=== PATIENT | female | born 1970 | race African-American/Black ===

== ENCOUNTER 2016-10-08 23:59 | Inpatient (IN) | payer MEDICARE, OTHER ==
--- NOTE | ~2016-10-08 | DS ---
Unit #: [id number] #: [id number] Patient: JIMENEZ KHALIL [id number] [address] [address] [id number] I MR#: [id number] NAME: JIMENEZ KHALIL ROOM: 576 Age: 46 Sex: F Admission Date: 10/09/2016 : 1970 Discharge Date: 10/11/2016 Attending Physician: Elian Santana M.D. Primary Care Physician: No Primary Care Physician DISCHARGE SUMMARY DISCHARGE DIAGNOSES 1. Malignant hypertension, better. 2. Atypical chest pain, status post cardiology evaluation: Stable for discharge. 3. Acute deep venous thrombosis, status post evaluation by hematology: Was treated with the Lovenox. After discussion with hematology, per hematology recommendations, patient is being discharged on Xarelto. 4. Acute kidney injury of chronic kidney disease, status post evaluation per entry level electrical engineer: Stable to be discharged. 5. Chronic abdominal pain and gastroparesis, tolerating p.o. diet. 6. Continuous tobacco use: Counseled on the importance of quitting on multiple occasions on this hospitalization. 7. Chronic obstructive pulmonary disease, stable at the baseline. 8. Insulin dependent diabetes, stable. 9. Anemia of chronic disease, stable: Discharge date H and H 9.3 and 27.7. CONSULTS DURING THIS HOSPITAL STAY 1. Dr. Yunier Esquivel - Hematology. 2. Dr. Childs - Cardiology. 3. Dr. Moreno - Endocrinology. 4. Dr. Jagjit Ledesma - Nephrology. LABS, DIAGNOSTICS AND PROCEDURES DURING THIS HOSPITAL STAY Carotid ultrasound showed DVT within the lower right internal jugular vein. Lower extremity Doppler negative. Upper extremity Doppler positive for occlusive or nearly occlusive DVT in the right lower internal jugular vein and subclavian vein. Positive for occlusive superficial venous thrombus in the left below elbow cephalic vein, otherwise negative. HISTORY OF PRESENT HOSPITAL STAY Please refer to H and P done by me for initial presentation on this female. ACTIVE PROBLEMS AND DIAGNOSES Malignant hypertension: The patient was restarted on her home medications. Her blood pressure responded well. Currently stable from BP standpoint to be discharged. Outpatient followup with primary care physician. See discharge Med Rec below. Unit #: [id number] #: [id number] Patient: JIMENEZ KHALIL Acute deep venous thrombosis, status post evaluation per hematology: Initially, was treated with a treatment dose of Lovenox. Discussed the case with Dr. Esquivel and patient will be discharging home with Xarelto 15 mg p.o. b.i.d. for three weeks and then 20 mg daily afterwards, total of three months per Dr. Esquivel's recommendations. Dr. Esquivel also provided the patient with his business card and patient was advised to follow up with Dr. Esquivel as an outpatient basis. Acute kidney injury on chronic kidney disease: Again, status post evaluation per Nephrology. Stable from nephrology standpoint to be discharged. Atypical chest pain, status post evaluation per cardiology: Stable to be discharged. Chronic abdominal pain and gastroparesis, stable: Tolerating p.o. well. Insulin dependent diabetes, status post evaluation per Dr. Moreno: Stable, on insulin regimen as above. Anemia of chronic disease, stable as above. Chronic obstructive pulmonary disease, stable at the baseline. Tobacco use: The patient was noticed leaving the floor frequently to go outside and smoke. Was counseled on the importance of quitting tobacco on multiple occasions. DISCHARGE MEDICATIONS 1. Neurontin 800 mg t.i.d. 2. Home dose of Phenergan 25 mg p.o. daily p.r.n. 3. Norvasc 10 mg daily. 4. Toprol XL 100 mg b.i.d. 5. Clonidine 0.3 mg patch daily. 6. Hydralazine 50 mg p.o. q.6 hours. 7. Levemir 40 units subcu b.i.d. 8. NovoLog 15 units subcu t.i.d. with meals. 9. Oxycodone 15 mg t.i.d. 10. Plavix 75 mg daily. 11. Xarelto 15 mg p.o. b.i.d. for three weeks and then 20 mg afterwards daily. The patient is to follow up with the primary care physician in two to three days. Outpatient followup with Dr. Esquivel in one to two weeks. Outpatient followup with nephrology. Dictated by..Katrin Santana M.D. ANGÉLICA/sonja TD: 10/12/2016 10:28 JOB #: [id number] Unit #: [id number] #: [id number] Patient: JIMENEZ KHALIL DISCHARGE SUMMARY Page 1 of 1 X Elian Santana MD X DISCHARGE SUMMARY
--- NOTE | ~2016-10-08 | CO ---
Unit #: [id number] #: [id number] Patient: JIMENEZ KHALIL [id number] [address] [address] [id number] I MR#: [id number] NAME: JIMENEZ KHALIL ROOM: 576 Age: 46 Sex: F Admission Date: 10/09/2016 : 1970 Attending Physician: Elian Santana M.D. Primary Care Physician: No Primary Care Physician CONSULTATION REPORT CHIEF COMPLAINT DVT in right internal jugular vein and right subclavian vein, superficial thrombosis and left cephalic vein below elbow, hypertension, diabetes, renal failure, gastroparesis. HISTORY OF PRESENT ILLNESS This is a 46-year-old female who has severe gastroparesis. She came with nausea, vomiting, abdominal pain. The patient has had multiple imaging studies. CT of the chest, abdomen and pelvis is normal, no mass. Venous Doppler ultrasound of the neck and the right upper extremity shows DVT in right internal jugular vein. DVT in right subclavian vein. On the left side, there is superficial vein thrombosis and cephalic vein below the elbow. Last year, the patient was admitted and had right IJ central line. There is no recent central line placement on the right side. No one in the family has thrombosis or bleeding. A long time ago, the patient had left upper extremity thrombosis after the IV access. She never took any anticoagulation. At present, she is taking Lovenox. As mentioned above, the patient had a CT of the chest, abdomen and pelvis. There is no malignancy. There is no weight loss, no night sweats. REVIEW OF SYSTEMS CONSTITUTIONAL: No fever, no chills, no sweats, no weight loss. EYES: No visual symptoms. EARS, NOSE AND THROAT: There is no runny nose or sore throat or difficulty hearing. CARDIOVASCULAR: No chest pain. No shortness of breath. No palpitations. No orthopnea. No PND. RESPIRATORY: No cough. No wheezing. No hemoptysis. GASTROINTESTINAL: No nausea, vomiting, diarrhea, constipation, hematochezia or melena. GENITOURINARY: No urinary frequency, hesitancy or urgency. No blood in the urine. MUSCULOSKELETAL: No muscle or joint pain. NEUROLOGIC: No headache. No numbness or tingling. No weakness. No seizure. PSYCHIATRIC: No anxiety, depression or mood disturbance. ENDOCRINE: No excessive urination or thirst. DERMATOLOGIC: No rash or change in the skin. ALLERGIC/IMMUNOLOGIC: No symptoms. Unit #: [id number] #: [id number] Patient: JIMENEZ KHALIL HEMATOLOGIC/LYMPHATIC: Denies any symptoms. PAST MEDICAL HISTORY 1. Uncontrolled hypertension. 2. Gastroparesis. 3. Diabetes. 4. Hypertension. 5. CKD. 6. [place]. 7. Now right IJ and right subclavian DVT. ALLERGIES Morphine, Reglan and Zyvox. SOCIAL HISTORY The patient is smoking one pack per day for 20 years. Still smoking. Denies alcohol abuse. Works as a [employer]. SURGICAL HISTORY 1. Tubal ligation. 2. Tonsillectomy. 3. Cholecystectomy. FAMILY HISTORY One of the aunt had some sort of cancer, she is not sure. Again, no one in the family had thrombosis or bleeding. MEDICATIONS Her current medications include: 1. Insulin. 2. Lovenox. 3. Oxycodone. 4. Neurontin. 5. Phenergan. 6. Pepcid. 7. Hydralazine. 8. Plavix. 9. Norvasc. PHYSICAL EXAMINATION GENERAL: Patient is comfortable. ECOG is 0. The patient is pleasant. VITAL SIGNS: Afebrile. O2 sat on 2 L 93%, blood pressure 154/83, pulse 86. HEENT: Moist mucosa. Pupils equally reactive to light. Extraocular muscles intact. Sclerae anicteric. No obvious bleeding from nasal mucosa or oral mucosa. Scalp normal. Hearing normal. NECK: No JVD. No lymphadenopathy. LYMPHATIC/HEMATOLOGIC: There is no palpable adenopathy in the neck, axilla or inguinal area. CARDIOVASCULAR: S1, S2. Regular rate and rhythm. No S3 or S4. RESPIRATORY: Chest symmetrical, normal. Clear to auscultation bilaterally. No wheezes, no rales, no rhonchi. No dullness to percussion. ABDOMEN/GASTROINTESTINAL: Abdomen is soft, nontender, nondistended. No hepatosplenomegaly. EXTREMITIES: There is no clubbing, no cyanosis, no edema. No varicose veins. NEUROLOGICAL: Patient is alert, awake and oriented x3. Cranial nerves II-XII are intact. Sensory grossly intact. Motor is 4/5 in all four Unit #: [id number] #: [id number] Patient: JIMENEZ KHALIL extremities. Gait is normal. Station is normal. Language is normal. Memory is normal. DTRs +2 in all four extremities. MUSCULOSKELETAL: No joint swelling. No bony tenderness. No muscle tenderness. SKIN: No petechiae, no rash, no ecchymosis. PSYCHIATRIC: No anxiety. No delusions or hallucinations. There is no agitation. Eye contact is normal. Affect is appropriate. There is no flight of ideas. DIAGNOSTIC STUDIES IMAGING: CT of the chest, abdomen, pelvis - no mass. Ultrasound of upper extremity as mentioned above. LABORATORY: WBC 9.7, hemoglobin 9.3, platelets 434, MCV 83. Creatinine is 2.1. LFTs are normal. Iron studies and B12 are normal. ASSESSMENT AND PLAN The patient is a 46-year-old female with the following active issues: 1. Thrombosis: The patient had right IJ and right subclavian DVT. There is a small superficial thrombosis in the left upper extremity. The DVT may be because of the line she had placed last year. At present, she is on Lovenox. She can go home on either Eliquis or Xarelto. This depends on the primary care physician. I will follow the patient as an outpatient. I will do the hypocoagulable workup. I will repeat ultrasound of the right neck and right upper extremity in the future. 2. Anemia: Iron studies normal. This is most likely due to (1) stage 4 chronic kidney disease. As an outpatient, I may consider giving her Procrit. Her iron study is normal. 3. Other conditions: Patient has hypertension, diabetes, chronic kidney disease, history of myocardial infarction, gastroparesis. At present, all are stable. Dictated by... Damaso Rehman TD: 10/12/2016 08:44 JOB #: [id number] CONSULTATION REPORT Page 1 of 1 X Bhavin Esquivel MD CONSULTATION REPORT
--- NOTE | ~2016-10-08 | CO ---
Unit #: [id number] #: [id number] Patient: JIMENEZ KHALIL [id number] [address] [place], [place] [address] [id number] I MR#: [id number] NAME: JIMENEZ KHALIL ROOM: 576 Age: 46 Sex: F Admission Date: 10/09/2016 : 1970 Attending Physician: Elian Santana M.D. Consultation Date: 10/09/2016 CONSULTATION REPORT HISTORY OF PRESENT ILLNESS This is a 46-year-old black female, who has multiple admissions known to me from last admission been admitted with the uncontrolled malignant hypertension, abdominal pain, nausea, possible gastroparesis exacerbation. On arrival, systolic blood pressure above 200 and acute renal failure with creatinine of 2.1. The patient does have a history of type 2 diabetes mellitus. She is insulin dependent. On her admission, her blood glucose was 341. I have been asked to see the patient for further adjustments of insulin. REVIEW OF SYSTEMS A 12-point review of system was completed and remarkable for nausea, some epigastric pain. No chest pain. No shortness of air. She does have some vomiting. No diarrhea. No fever or chills. No urgency, frequency, or dysuria. Rest of the 12-point review of systems unremarkable. PAST MEDICAL HISTORY Diabetes mellitus, type 2, insulin dependent; gastroparesis; hypertension; chronic pain; peripheral neuropathy; history of MRSA; history of COPD. PAST SURGICAL HISTORY Cholecystectomy, tonsillectomy, tubal ligation. FAMILY HISTORY Unremarkable. HOME MEDICATIONS List was reviewed. The patient was taking Levemir 70 units b.i.d. I believe NovoLog is about 52 units with meals. Other medications include gabapentin, Zestril, hydralazine, clonidine, Plavix, Norvasc, Toprol-XL. ALLERGIES To morphine, Reglan, Zyvox. PHYSICAL EXAMINATION GENERAL: Awake, alert. She looks uncomfortable because of pain, but in no acute respiratory distress. VITAL SIGNS: Afebrile, hemodynamically stable. HEENT: EOMI. Pupils equally reactive to light. NECK: Supple. No thyromegaly. CHEST: Good air entry. CVS: Regular rhythm. No murmurs. ABDOMEN: Soft. She has generalized tenderness with positive bowel sounds. Unit #: [id number] #: [id number] Patient: JIMENEZ KHALIL EXTREMITIES: No edema. No ulcers. DIAGNOSTIC STUDIES LABORATORY RESULTS: Labs were reviewed. Glucose 341, BUN is 33, creatinine 2.1. Most recent A1c is not available. ASSESSMENT 1. Type 2 diabetes mellitus complicated with gastroparesis, uncontrolled. 2. Exacerbation of gastroparesis. 3. Obesity. 4. Poor diet compliance. PLAN We will change the patient's Levemir to 40 units b.i.d. Accu-Cheks every 4 hours. Continue IV hydration. Cover with supplemental insulin as needed. The patient is on clear liquids. We will advance the diet as tolerated. Continue all other home medications. Thanks again for consultation. Dictated by... Damaso Levin/yvette TD: 10/11/2016 06:02 JOB #: [id number] CONSULTATION REPORT Page 1 of 1 X Sherry Moreno MD X CONSULTATION REPORT
--- NOTE | ~2016-10-08 | CO ---
Unit #: [id number] #: [id number] Patient: JIMENEZ KHALIL [id number] [address] [place], [place] [address] [id number] I MR#: [id number] NAME: JIMENEZ KHALIL ROOM: 576 Age: 46 Sex: F Admission Date: 10/09/2016 : 1970 Attending Physician: Elian Santana M.D. Consultation Date: 10/09/2016 CONSULTATION REPORT DICTATED FOR [facility]. REASON FOR CONSULTATION Hypertension. HISTORY OF PRESENT ILLNESS This is a 46-year-old female, who has been seen in the past by Dr. Lamine Salas. She has a past medical history of hypertension, diabetes mellitus, diabetic gastroparesis, chronic pain, peripheral neuropathy, anemia of chronic disease, COPD, and chronic kidney disease. The patient presented to the emergency room with complaints of abdominal pain, it started approximately 1 week ago. However, she stated the pain worsened yesterday requiring her to seek treatment. The patient described the pain is diffuse of generalized abdominal discomfort and pain associated with nausea and bouts of bilious emesis x4 episodes. She denied any complaints of fever or chills. She states she has been having some watery stools as well, but denied any blood in the stools. Reports she was just feeling weak and not able to keep any liquids down. The patient also mentioned some right-sided chest pain described as throbbing and sharp. She states this has been occurring off and on for several weeks. The patient does report she has been compliant with her medications. Denies any radiation of the pain into the jaw, shoulder, or down the arm. There was no associated diaphoresis or shortness of breath. The patient does report that her legs have been swelling slightly over the last few days. Usually, the swelling subsides when she lays down. She reports she has been compliant with all of her medications. On arrival to the emergency room, the patient did have cardiac EKG performed, which showed normal sinus rhythm, rate of 94 beats per minute, right atrial enlargement, QTc interval of 497 msec, no acute ischemic change was noted. Point of care troponin thus far has been negative. She also was noted to have elevated blood pressure on admission, which was running 190s over 99 to 197/116. The patient has received in the ER some IV fluids as well as hydralazine IV. At present, she is resting in the bed. She states she does not feel well, primarily complaining of generalized fatigue and abdominal discomfort. Currently, blood pressure is in the 190 range. Her rhythm remained stable. She is sinus rhythm. The patient underwent cardiac catheterization in 12/2016 secondary to an abnormal stress test. Cardiac catheterization showed normal coronary arteries with normal LVEF. Unit #: [id number] #: [id number] Patient: JIMENEZ KHALIL PAST MEDICAL HISTORY 1. Cardiac catheterization in 12/[address] Szymanski showed normal coronary arteries and normal LVEF. 2. Hypertension. 3. Diabetes mellitus. 4. Diabetic gastroparesis. 5. History of diastolic CHF, LVEF 55 on last echo. 6. Depression. 7. Continued tobacco abuse. 8. Obesity. ALLERGIES Morphine, Reglan, Zyvox, and nitrates. SOCIAL HISTORY The patient lives with her daughter. She continues to smoke approximately one pack per day times the last 20 years. 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 Denies alcohol or illicit drug use. FAMILY HISTORY Positive for diabetes in her mother. Hypertension in her mother as well as coronary artery disease. Father, she is unsure. REVIEW OF SYSTEMS Positive for lower extremity swelling, abdominal pain, nausea, and vomiting. Otherwise, as stated above. PHYSICAL EXAMINATION GENERAL: This is a pleasant 46-year-old female, in no acute distress. HEENT: Head is atraumatic and normocephalic. Pupils are equal and round. NECK: Trachea is midline. No lymphadenopathy. No thyromegaly. Carotid bruit auscultated on the right carotid artery. CARDIOVASCULAR: S1, S2. No murmurs, gallops, or rubs. LUNGS: Clear to auscultation. No adventitious breath sounds. No rales, no rhonchi, no wheezes. ABDOMEN: Obese, pannus, soft, slightly tender to palpation, enlarged liver. EXTREMITIES: Pulses are palpable. Trace edema. No clubbing or cyanosis is noted. NEUROLOGIC: She is awake, alert, and oriented. She follows all commands. Moves extremities with ease. HOME MEDICATIONS Toprol-XL 100 mg p.o. b.i.d., Norvasc 10 mg p.o. daily, Plavix 75 mg p.o. daily, Levemir 60 units subcu b.i.d., hydrochlorothiazide/spironolactone one tab p.o. b.i.d., clonidine one each topical daily 0.3 mg, hydralazine 50 mg p.o. q.6 hours, Zestril 20 mg p.o. b.i.d. DIAGNOSTIC STUDIES LABORATORY RESULTS: Glucose 341, BUN 33, creatinine 2.1, sodium 135, potassium 3.9, chloride 98, CO2 of 25, albumin is 2.6, alkaline phosphatase 142. Lipases is 21. BHOB is 0.66. Point of care troponin was 0.08. Hemoglobin 9.7, hematocrit 29.0, MCV 82.9, WBCs 10.7, platelet count 441. CARDIOVASCULAR STUDIES: EKG shows normal sinus rhythm, rate 94 beats per Unit #: [id number] #: [id number] Patient: JIMENEZ KHALIL minute, right atrial enlargement, QTc interval 497 msec, no acute ischemic changes noted. IMPRESSION 1. Chest pain, atypical for ischemic heart disease. 2. Hypertension. 3. Insulin-dependent diabetes mellitus with poorly controlled. 4. Hepatomegaly. 5. Gastroparesis with nausea and vomiting. 6. Chronic obstructive pulmonary disease with continued nicotine abuse. 7. Obesity with a BMI of 37. 8. Chronic kidney disease. PLAN At this time, we will continue IV fluids for rehydration. The patient has undergone recent cardiac catheterization in 12/2014 after an abnormal stress Cardiolite. At that time, her coronaries were noted to be normal with a normal LVEF. At this time, her blood pressure will be monitored. Some of her medications have been discontinued secondary to her elevated creatinine, we will keep an eye on that. She was advised on the importance of diet, exercise, and weight loss as well as tobacco cessation. Her EKG has been reviewed and was normal. We will trend cardiac enzymes. However, her chest pains appear atypical for ischemic heart disease. Not much to add at this time with normal coronaries and normal LV function. The patient was also educated on the importance of low-sodium diet and the importance of compliance with her hypertensive medications. Further recommendations to follow pending cardiology's assessment. Thank you for asking us to see this pleasant patient. We appreciate the consult. Dictated by... Emani Sinclair/yvette TD: 10/10/2016 00:39 JOB #: [id number] CONSULTATION REPORT Page 1 of 1 X Odalis Pretty APRN CONSULTATION REPORT
--- NOTE | ~2016-10-08 | CT57 ---
[facility] A Service of [facility] RADIOLOGY TEXT RESULTS PATIENT: JIMENEZ KHALIL LOCATION: [facility] : 74 UNIT #: [id number] AGE: [address]: Elian Santana MD SEX: F ORDER DR: [id number] [place] [id number] [facility]. [place], [place] [address] [id number] MR#: [id number] Acc #: [id number] NAME: JIMENEZ KHALIL : 1970 SEX: F STUDY DATE/TIME: 10/11/2016 12:47 UNIT: [facility] ROOM: [facility] STUDY DESCRIPTION: CT Chest Wo Cont Attending Physician: Elian Santana M.D. Ordering Physician: Bhavin Esquivel M.D. Primary Care Physician: Primary Care Physician No MEDICAL IMAGING REPORT This report is preliminary unless electronic signature is present EXAM CT chest without contrast 10/11/2016 HISTORY 46-year-old female with shortness of air for 2 days. Order requests evaluation for malignancy. COMPARISON Chest x-ray 09/14/2016 TECHNIQUE Helical scan performed through the chest without IV contrast. Coronal and sagittal reformatted images. This CT exam was performed with one or more of the following radiation dose reduction techniques: automatic exposure control, adjustment of mA and/or kV according to patient size, and iterative reconstruction. FINDINGS Thoracic aorta normal in course and caliber. Heart size normal. No pericardial effusion. No evidence of significant mediastinal lymphadenopathy. No pleural effusion. No pneumothorax. No parenchymal infiltrates or masses. Incidental scanning through the upper abdomen is unremarkable. Cholecystectomy. No acute bony abnormality. IMPRESSION 1. No acute chest findings. No evidence of pulmonary mass or infiltrate. 2. No significant mediastinal lymphadenopathy allowing for lack of IV contrast. 3. Cholecystectomy. [facility] A Service [facility] RADIOLOGY TEXT RESULTS PATIENT: JIMENEZ KHALIL LOCATION: [facility] : 74 UNIT #: [id number] AGE: [address]: Elian Santana MD SEX: F ORDER DR: Results discussed with Dr. Esquivel at the time of dictation. Dictated by... Abdoul Murray M.D. THIS IS AN ELECTRONICALLY VERIFIED REPORT Abdoul Murray M.D. at 10/12/2016 10:55 AM KALLI/naomi TD: 10/12/2016 09:09 JOB #: [id number] MEDICAL IMAGING REPORT Page 1 of 1 COPY
--- NOTE | ~2016-10-08 | US84 ---
[id number] [facility]. [facility] [address]. [place], [place] [address] [id number] MR#: [id number] Acc #: [id number] NAME: JIMENEZ KHALIL : 1970 SEX: F STUDY DATE/TIME: 10/10/2016 15:13 UNIT: [facility] ROOM: 576 STUDY DESCRIPTION: US LE Veins Complete Roderick Stdy Attending Physician: Elian Santana M.D. Ordering Physician: Elian Santana M.D. Primary Care Physician: No Primary Care Physician MEDICAL IMAGING REPORT This report is preliminary unless electronic signature is present EXAM Bilateral lower extremity venous Doppler, 10/10/2016 HISTORY Right arm DVT with bilateral leg pain, on Plavix. Bilateral leg swelling and short of air with chest tightness symptoms for 1 week. TECHNIQUE Venous ultrasound examination of both lower extremities was performed using grayscale, spectral Doppler and color flow Doppler imaging. FINDINGS The examination is negative. There is no evidence of deep venous thrombus from the groin to the lower calf bilaterally. Visualized greater saphenous veins are also patent. IMPRESSION Negative examination. No evidence of lower extremity deep venous thrombosis. Dictated by... Andrew Quick M.D. THIS IS AN ELECTRONICALLY VERIFIED REPORT Andrew Quick M.D. at 10/12/2016 11:21 AM PAPO/aubree TD: 10/10/2016 22:28 JOB #: [id number] MEDICAL IMAGING REPORT Page 1 of 1 COPY
--- NOTE | ~2016-10-08 | US38 ---
[facility] A Service of [facility] RADIOLOGY TEXT RESULTS PATIENT: JIMENEZ KHALIL LOCATION: [facility] [address]-02 : [birth year] UNIT #: [id number] AGE: [address]: Elian Santana MD SEX: F ORDER DR: [id number] [facility] [address] [place], [place] [address] [id number] MR#: [id number] Acc #: [id number] NAME: JIMENEZ KHALIL : 1970 SEX: F STUDY DATE/TIME: 10/09/2016 10:30 UNIT: [facility] ROOM: 21027 STUDY DESCRIPTION: US Carotid W/Doppler [facility] Attending Physician: Elian Santana M.D. Ordering Physician: Odalis Pretty A.P.R.N. Primary Care Physician: No Primary Care Physician MEDICAL IMAGING REPORT This report is preliminary unless electronic signature is present EXAM Right unilateral carotid Doppler ultrasound examination, 10/09/2016. HISTORY 46-year-old female referred for right carotid bruit on physical examination. A right unilateral examination is requested. TECHNIQUE Right unilateral carotid Doppler ultrasound examination was performed using frye-scale, spectral Doppler, and color-flow Doppler ultrasound imaging. Carotid flow was assessed using criteria based on NASCET methodology. FINDINGS The examination is negative. No significant atheromatous plaque is seen within the carotid vessels. Doppler evaluation shows normal flow velocities and normal Doppler waveforms within the right carotid and vertebral arteries. Peak systolic ICA flow velocity measures up to 0.60 m/sec on the right. Note is made of segmental DVT within the right lower internal jugular vein. Consider followup complete right upper extremity venous Doppler ultrasound examination for further assessment. IMPRESSION 1. Normal right unilateral carotid Doppler ultrasound examination. Left carotid exam was not ordered. 2. DVT is present within the lower right internal jugular vein. Consider followup complete right upper extremity venous Doppler assessment. STAT * RESULT [facility] A Service of [facility] RADIOLOGY TEXT RESULTS PATIENT: JIMENEZ KHALIL LOCATION: [facility] [id number] : [birth year] UNIT #: [id number] AGE: [address]: Elian Santana MD SEX: F ORDER DR: Dictated by... Jefe Salcido M.D. THIS IS AN ELECTRONICALLY VERIFIED REPORT Jefe Salcido M.D. at 10/09/2016 1:32 PM RGW/olena TD: 10/09/2016 11:58 JOB #: [id number] MEDICAL IMAGING REPORT Page 1 of 1 COPY
--- NOTE | ~2016-10-08 | US139 ---
[facility] A Service of [facility] RADIOLOGY TEXT RESULTS PATIENT: JIMENEZ KHALIL LOCATION: [facility] 576-01 : [birth year] UNIT #: [id number] AGE: [address]: Elian Santana MD SEX: F ORDER DR: [id number] [facility] [address]. [place], [place] [address] [id number] I MR#: [id number] Acc #: [id number] NAME: JIMENEZ KHALIL : 1970 SEX: F STUDY DATE/TIME: 10/10/2016 15:31 UNIT: [facility] ROOM: [facility] STUDY DESCRIPTION: US UE Veins Complete Roderick Stdy Attending Physician: Elian Santana M.D. Ordering Physician: Elian Santana M.D. Primary Care Physician: No Primary Care Physician MEDICAL IMAGING REPORT This report is preliminary unless electronic signature is present EXAM Bilateral upper extremity venous Doppler 10/10/2016 HISTORY Short of air for 1 month. PROCEDURE Cabral-scale imaging, color-Doppler flow imaging and Doppler waveform analysis. FINDINGS On the right there is occlusive or nearly occlusive thrombus in the lower internal jugular vein and in the right subclavian vein. The axillary and brachial veins are normal and superficial cephalic and basilic veins are normal as well. On the left, the internal jugular, subclavian, axillary, and brachial veins are normal. The cephalic vein is normal above the elbow but there is below elbow occlusive cephalic vein superficial venous thrombus on the left. The left basilic vein is normal. IMPRESSION 1. Positive for occlusive or nearly occlusive DVT in the right lower internal jugular vein and subclavian vein. 2. Positive for occlusive superficial venous thrombus in the left below elbow cephalic vein. 3. Otherwise negative. Dictated by... Andrew Quick M.D. THIS IS AN ELECTRONICALLY VERIFIED REPORT Andrew Quick M.D. at 10/12/2016 11:21 AM [facility] Service of [facility] RADIOLOGY TEXT RESULTS PATIENT: JIMENEZ KHALIL LOCATION: [facility] 576-01 : [birth year] UNIT #: [id number] AGE: [address]: Elian Santana MD SEX: F ORDER DR: PAPO/davie TD: 10/10/2016 23:39 JOB #: [id number] MEDICAL IMAGING REPORT Page 1 of 1 COPY
--- NOTE | ~2016-10-08 | EKG ---
PATIENT: JIMENEZ KHALIL UNIT #: [id number] Ventricular Rate: 94 BPM Atrial Rate: 94 BPM P-R Interval: 154 ms QRS Duration: 74 ms Q-T Interval: 398 ms QTC Calculation(Bezet): 497 ms P King: 75 degrees Calculated R King: 18 degrees Calculated T King: 66 degrees Diagnosis Line: Normal sinus rhythm Diagnosis Line: Right atrial enlargement Diagnosis Line: Prolonged QT Diagnosis Line: Abnormal ECG Diagnosis Line: No previous ECGs available Diagnosis Line: Confirmed by ANGY MCLAUGHLIN MD ([id number]) on 10/09/2016 Diagnosis Line: 8:10:10 PM INTERPRETING MD: LISSETTE JACKMAN
--- NOTE | ~2016-10-08 | CO ---
Unit #: [id number] #: [id number] Patient: JIMENEZ KHLAIL [id number] [address] [place], [place] [address] [id number] I MR#: [id number] NAME: JIMENEZ KHALIL ROOM: 576 Age: 46 Sex: F Admission Date: 10/09/2016 : 1970 Attending Physician: Elian Santana M.D. Consultation Date: 10/10/2016 CONSULTATION REPORT REASON FOR CONSULTATION Elevated creatinine level, uncontrolled high blood pressure. HISTORY OF PRESENT ILLNESS The patient is a 46-year-old female, came in with complaints of vomiting for 2 to 3 days, no diarrhea, noted to have elevated blood pressure, no shortness of breath, no mental status changes, no noted hematuria. The creatinine noted to be 2.1 with blood pressure on admission in 200s. No reported chest pain. No fever, but the patient does report chills. PAST MEDICAL HISTORY Significant for insulin-dependent diabetes, gastroparesis, hypertension, peripheral neuropathy, history of COPD, anemia of CKD, anemia of chronic disease. PAST SURGICAL HISTORY Significant for cardiac catheterization in 2014 which was unremarkable reportedly, status post cholecystectomy, tonsillectomy, tubal ligation. FAMILY HISTORY Unremarkable for end-stage renal disease. HOME MEDICATIONS Include Toprol 100 mg b.i.d., Norvasc 10 mg daily, Plavix 75 mg daily, Levemir 60 units b.i.d., Aldactone and hydrochlorothiazide b.i.d., clonidine 0.3 daily, hydralazine 50 mg q.6, Zestril 20 mg b.i.d., gabapentin 800 mg t.i.d., Phenergan 25 mg daily, NovoLog 52 units t.i.d. ALLERGIES Morphine, Reglan, and Zyvox. PHYSICAL EXAMINATION GENERAL: The patient is awake, alert, and oriented. VITAL SIGNS: Currently blood pressure is 154/72, heart rate is 85, temperature is 97.7. HEENT: Head is atraumatic. Extraocular movements are intact. NECK: Supple. There is no elevation of the JVD. CHEST: Clear. Air entry is equal bilaterally. Breathing is vesicular in nature. HEART: S1, S2 audible. There is no S3, no S4. ABDOMEN: Soft. There is no organomegaly. No guarding. No rigidity. No rebound tenderness. EXTREMITIES: There is no edema. Unit #: [id number] #: [id number] Patient: JIMENEZ KHALIL COMPLIANCE NURSE: Motor system is intact. Cerebellar system is intact. DIAGNOSTIC STUDIES LABORATORY RESULTS: Significant for WBC 10.7, hemoglobin 9.7, hematocrit 29, and platelets 441. The sodium 135, potassium 3.9, chloride 98, CO2 of 25, BUN 33, creatinine 2.1, glucose 341, calcium 8.4. The creatinine level in 11/2015 was 1.1. IMPRESSION 1. Acute kidney injury likely hemodynamic related complicated by Zestril. We will gently hydrate, hold Zestril, and follow the renal function. Less likely to have acute tubular necrosis. Less likely postinfectious glomerulonephritis. We will consider checking for obstruction. 2. Gastroenteritis, Gastroenterology to follow. 3. Hypertension. Continue home medications, use IV labetalol. 4. Monitor electrolytes acid-based. Dictated by... Jagjit Ledesma M.D. RA/yvette TD: 10/11/2016 02:32 JOB #: [id number] CONSULTATION REPORT Page 1 of 1 X Jagjit Ledesma MD CONSULTATION REPORT
--- NOTE | ~2016-10-08 | HP ---
Unit #: [id number] #: [id number] Patient: JOYCE KHALIL [id number] [address] [address] [id number] I MR#: [id number] NAME: JOYCE KHALIL ROOM: 576 Age: 46 Sex: F Admission Date: 10/09/2016 : 1970 Attending Physician: Elian Santana M.D. HISTORY AND PHYSICAL ADMISSION DIAGNOSES 1. Malignant hypertension. 2. Acute renal failure. 3. Elevated troponin with some chest pain. 4. Abdominal pain with some nausea. 5. History of gastroparesis. 6. Insulin-dependent diabetes. 7. Anemia of chronic disease. 8. History of chronic pain. 9. Acute deep venous thrombosis. 10. History of chronic obstructive pulmonary disease. HISTORY OF PRESENT ILLNESS Miss Joyce Khalil is a 46-year-old female well known to our service secondary to similar presentation in the past. She was discharged from our service in August of last year when she presented with malignant hypertension and gastroparesis. This time, patient comes with the complaints of abdominal discomfort and nausea. She was complaining also of some atypical chest discomfort with some radiation towards the back and epigastric area. On initial evaluation in the ER, patient was found with malignant hypertension with systolic blood pressures in the 200s, along with acute renal failure with a creatinine of 2.1 and BUN 33. Patient also had a mildly elevated set of troponins. She is status post evaluation per Nephrology and Cardiology. CT abdomen and pelvis did not show any acute findings. Chest x-ray was unremarkable. A CT of the head also was done which was without any acute findings. Carotid ultrasound showed a right internal jugular vein DVT. Patient initially was started on subcutaneous heparin for DVT prophylaxis, but then after these findings of the DVT, she is currently on treatment dose of subcutaneous Lovenox. Currently, she denies any active chest pain, denies any headache or dizziness, and denies any fever, chills, cough, or shortness of air. She complains of being nauseated. Denies currently any abdominal pain which has resolved since presentation to the emergency room. No syncopal episode. So a 12-point review of systems on this patient basically is negative except as above. PAST MEDICAL HISTORY 1. Insulin-dependent diabetes. 2. Gastroparesis. 3. Hypertension. 4. Chronic pain. Unit #: [id number] #: [id number] Patient: JOYCE KHALIL 5. Peripheral neuropathy. 6. History of MRSA. 7. History of COPD. 8. Anemia of chronic disease. PAST SURGICAL HISTORY 1. Cardiac cath in December 2014 which was reportedly negative. 2. Cholecystectomy. 3. Tonsillectomy. 4. Tubal ligation. 5. Previous EGDs and colonoscopies. FAMILY HISTORY Unremarkable. HOME MEDICATIONS 1. Toprol-XL 100 mg b.i.d. 2. Norvasc 10 mg daily. 3. Plavix 75 mg daily. 4. Levemir 60 units subcutaneous b.i.d. 5. Spironolactone and hydrochlorothiazide 1 tablet p.o. b.i.d. 6. Clonidine 0.3 mg patch daily. 7. Hydralazine 50 mg q.6 hours. 8. Zestril 20 mg b.i.d. 9. Gabapentin 800 mg t.i.d. 10. Oxycodone 15 mg t.i.d. 11. Phenergan 25 mg p.o. daily. 12. NovoLog 52 units subcutaneous t.i.d. ALLERGIES Morphine, Reglan, and Zyvox. PHYSICAL EXAMINATION GENERAL: Patient is a 46-year-old female in no acute distress. VITAL SIGNS: Blood pressure 154/72, heart rate 85, respirations 18, and temperature 97.7. HEENT: Head is atraumatic. Pupils equal, round, and reactive to light and accommodation. Extraocular muscles intact. Oropharynx clear. NECK: Supple. No mass, no JVD, and no bruits. CHEST: Diminished at the bases but generally clear. CARDIOVASCULAR: S1 and S2. No murmurs. ABDOMEN: Obese, soft, nontender, and nondistended. Bowel sounds are diminished. LOWER EXTREMITIES: Without any cyanosis, clubbing, or edema. NEUROLOGIC: Grossly intact with no focal deficits. Alert and oriented x3. Answering questions appropriately. DIAGNOSTIC STUDIES LABORATORY: Chemistry significant for BUN and creatinine of 33 and 2.1, blood glucose 341, GFR down at 32.4, chloride 98, albumin 2.6, and alkaline phosphatase 142. Lipase 21. Total CK 144. Hematology shows a white count of 10.7, hemoglobin and hematocrit 9.7 and 29, and platelets 441,000. IMAGING: Chest x-ray, CTs of the head and abdomen, and carotid ultrasound as above. Unit #: [id number] #: [id number] Patient: JOYCE KHALIL ASSESSMENT AND PLAN 1. Malignant hypertension. Resumed on home medications. Status post Cardiology evaluation. Stable. 2. Acute renal failure, status post evaluation per Nephrology. Continue to hold diuretics, hold MIKAL, and monitor closely. Gentle hydration. 3. Reportedly elevated troponins which was reported to me by ER physicians. However, I cannot find any records in the computer. Patient also reported some atypical chest discomfort. She had a recent cardiac catheterization in 2014. Cardiology follows. Follow up on their recommendations. Follow up on the 2D echocardiogram. 4. Abdominal pain with nausea most likely secondary to history of gastroparesis. Will check amylase and lipase. Consider Dr. Guerra consult. 5. Insulin-dependent diabetes. Will ask Dr. Moreno for help. 6. History of gastroparesis as above. 7. Acute deep venous thrombosis. Started on Lovenox. Check the ultrasounds. Will have Hematology on board. 8. Anemia of chronic disease, currently stable. 9. Gastrointestinal prophylaxis. Continue with Pepcid. 1. Dictated by Damaso Goldberg/jessi TD: 10/09/2016 22:00 JOB #: [id number] HISTORY AND PHYSICAL Page 1 of 1 X Elian Santana MD X HISTORY AND PHYSICAL
[~2016-10-08 23:59] MED LIST: ACETAMINOPHEN500 M3 PO; ALDACTAZIDE PO; ALDACTONE25 MG PO; ALPRAZOLAM0.25 MG PO; APRESOLINE10 M1 PO; ARTIFICIAL TEAR15 ML OP; ASPIRIN81 M1 PO; ASPIRIN81 M2 PO; ATIVAN PO; ATORVASTATIN CA10 MG PO; BACTRIM DS TABL1 TA1 PO; BACTRIM DS TABL1 TAB PO; BENZONATATE PO; CARVEDILOL25 MG PO; CATAPRES-TTS-20.2 M1 EXT; CATAPRES-TTS-20.2 MG PO; CATAPRES-TTS-30.3 M1 TD; CATAPRES0.1 MG PO; CATAPRES0.3 MG PO; CILOXAN 0.3% O2.5 ML OP; CLEOCIN PO; CLINDAMYCIN HC300 MG PO; CLONIDINE HCL0.1 MG PO; CLONIDINE PO; CLOPIDOGREL75 MG PO; COMBIVENT INH14.7 GM IH; COREG PO; DARVOCET-N 1001 TAB PO; EFFIENT10 MG PO; ERYTHROMYCIN F PO; GLUCOPHAGE XR500 MG PO; HUMULIN 70/30 V10 ML INJ; HYDRALAZINE HCL25 MG PO; HYDRALAZINE HCL50 MG PO; HYDROCHLOROTH12.5 M1 PO; HYDROCHLOROTH12.5 MG PO; HYDROCHLOROTHIA25 MG PO; HYDROCODON-ACE1 EAC7 PO; KEFLEX PO; KEFLEX500 MG PO; LANTUS100 U/M1 SUBQ; LANTUS100 U/ML SUBQ; LEVEMIR SUBQ; LEVEMIR100 UNITS/ SUBQ; LIPITOR PO; LISINOPRIL PO; LISINOPRIL10 MG PO; LISINOPRIL20 MG PO; LOPRESSOR PO; LORTAB 10-5001 EACH PO; LORTAB 101 TAB 10/5 PO; LORTAB 7.5-5001 TAB; MAGNESIUM OXID420 MG PO; MAGOX 400400 MG PO; METOPROLOL SUCC50 MG PO; MICROZIDE12.5 M1 PO; MIRALAX17 GM PO; NEURONTIN PO; NEURONTIN100 MG PO; NEURONTIN300 MG PO; NEURONTIN600 MG PO; NICODERM C1 PATCH .3; NORVASC PO; NORVASC10 MG PO; NOVOLOG FL100 UNIT/1 SUBQ; NOVOLOG100 U/M1 SUBQ; NOVOLOG100 U/M2 SUBQ; NOVOLOG100 U/ML; NOVOLOG100 U/ML SUBQ; NOVOLOG100 UNITS/; NOVOLOG100 UNITS/ SUBQ; PEPCID PO; PHENERGAN25 M1 PO; PLAVIX PO; PRILOSEC20 MG PO; PRINIVIL20 M1 PO; PROTONIX PO; SPIRONOLAC1 TAB 25/2 PO; TYLENOL EXTRA500 M1; TYLENOL325 M1 PO; VICODIN 5/1 TAB 5/50 PO
[2016-10-09 04:19] LABS: POC - CKMB 7.8 ng/mL (0.0-7.9); POC - TROPONIN 0.08 ng/mL (<=0.05)
[2016-10-09 04:24] LABS: BASOPHIL# 0.1 X10e3 (0-0.3); BASOPHIL% 1.3 % (0-2.5); EOSINOPHIL# 0.1 X10e3 (0-0.7); EOSINOPHIL% 1.4 % (0.0-7.0); HEMOGLOBIN 9.7 gm/dL (12.0-16.0); MEAN CELL VOLUME 82.9 FL (83-96); MEAN CORPUSCULAR HEMOGLOBIN 27.7 PG (28-34); MEAN CORPUSCULAR HGB CONC 33.4 g/dL (30-36); MEAN PLATELET VOLUME 7.9 FL (6.5-11.5); MONOCYTE# 0.7 X10e3 (0-1.0); MONOCYTE% 6.5 % (3.0-12.0); NEUTROPHIL# 6.7 X10e3 (1.5-7.1); NEUTROPHIL% 62.8 % (40-75); PLATELET COUNT 441 X10e3 (140-420); WHITE BLOOD COUNT 10.7 X10e3 (4.0-10.5)
[2016-10-09 04:25] LABS: DIFF IND NO
[2016-10-09 05:05] LABS: ALBUMIN SERUM 2.6 g/dL (3.5-5.0); ALKALINE PHOSPHATASE 142 U/L (32-92); ALT (SGPT) 18 U/L (10-40); AST (SGOT) 17 U/L (10-42); BETA HYDROXYBUTYRATE 0.66 MMOL/L (0.02-0.27); BILIRUBIN, DIRECT <0.1 mg/dL (0.0-0.2); BILIRUBIN,INDIRECT 0.4 mg/dL (0.0-0.9); BILIRUBIN,TOTAL 0.5 mg/dL (0.2-2.0); BLOOD UREA NITROGEN 33 mg/dL (9-23); BUN/CREATININE RATIO 15.71; CALCIUM SERUM 8.4 mg/dL (8.4-10.2); CARBON DIOXIDE 25 mmol/L (22-31); CHLORIDE 98 mmol/L (100-111); CREATININE SERUM 2.1 mg/dL (0.6-1.4); GLOM FILT RATE Estimated 32.4 mL/min (>60); GLUCOSE FASTING 341 mg/dL (70-110); LIPASE 21 U/L (22-51); POTASSIUM 3.9 mmol/L (3.5-5.1); PROTEIN TOTAL SERUM 7.3 g/dL (6.0-8.3); SODIUM 135 mmol/L (135-145)
[2016-10-09] MEDS ORDERED: TOPROL XL100 MG PO (05:32)
[2016-10-09] MEDS ORDERED: CLOPIDOGREL75 MG PO (05:33)
[2016-10-09] MEDS ORDERED: NORVASC10 MG PO (05:33)
[2016-10-09] MEDS ORDERED: LEVEMIR100 UNITS/ SUBQ (05:41)
[2016-10-09] MEDS ORDERED: SPIRONOLAC1 TAB 25/2 PO (05:42)
[2016-10-09] MEDS ORDERED: HYDRALAZINE HCL50 MG PO (05:43)
[2016-10-09] MEDS ORDERED: CLONIDINE1 EAC2 TD (05:43)
[2016-10-09] MEDS ORDERED: LISINOPRIL PO (05:44)
[2016-10-09 11:02] LABS: %MB 3.1 % (0.0-4.0); MB 4.4 ng/ml
[2016-10-09] MEDS ORDERED: GABAPENTIN800 MG PO (11:51)
[2016-10-09] MEDS ORDERED: OXYCODONE15 M1 PO (11:52)
[2016-10-09] MEDS ORDERED: PHENERGAN25 MG PO (11:52)
[2016-10-09] MEDS ORDERED: NOVOLOG100 UNIT/1 SUBQ (11:53)
[2016-10-09 21:30] LABS: %MB 2.8 % (0.0-4.0); MB 3.4 ng/ml
[2016-10-10 07:55] LABS: BASOPHIL# 0.1 X10e3 (0-0.3); BASOPHIL% 1.1 % (0-2.5); EOSINOPHIL# 0.6 X10e3 (0-0.7); EOSINOPHIL% 5.7 % (0.0-7.0); HEMATOCRIT 28.5 % (35.0-45.0); HEMOGLOBIN 9.3 gm/dL (12.0-16.0); LYMPHOCYTE# 4.4 X10e3 (1.0-3.5); MEAN CELL VOLUME 83.7 FL (83-96); MEAN CORPUSCULAR HEMOGLOBIN 27.4 PG (28-34); MEAN CORPUSCULAR HGB CONC 32.8 g/dL (30-36); MEAN PLATELET VOLUME 7.7 FL (6.5-11.5); MONOCYTE# 0.6 X10e3 (0-1.0); MONOCYTE% 5.6 % (3.0-12.0); NEUTROPHIL# 4.8 X10e3 (1.5-7.1); NEUTROPHIL% 45.6 % (40-75); PLATELET COUNT 413 X10e3 (140-420); RED BLOOD COUNT 3.41 X10e (3.90-5.30); RED CELL DISTRIBUTION WIDTH 14.8 % (11.0-15.5); WHITE BLOOD COUNT 10.5 X10e3 (4.0-10.5)
[2016-10-10 07:59] LABS: DIFF IND NO
[2016-10-10 13:47] LABS: BUN/CREATININE RATIO 12.77; CALCIUM SERUM 7.4 mg/dL (8.4-10.2); CREATININE SERUM 1.8 mg/dL (0.6-1.4); POTASSIUM 4.2 mmol/L (3.5-5.1)
[2016-10-11 05:42] LABS: BASOPHIL# 0.1 X10e3 (0-0.3); BASOPHIL% 0.6 % (0-2.5); EOSINOPHIL# 0.9 X10e3 (0-0.7); EOSINOPHIL% 9.8 % (0.0-7.0); HEMATOCRIT 27.7 % (35.0-45.0); HEMOGLOBIN 9.3 gm/dL (12.0-16.0); LYMPHOCYTE# 4.2 X10e3 (1.0-3.5); LYMPHOCYTE% 43.4 % (17.0-45.0); MEAN CELL VOLUME 83.2 FL (83-96); MEAN CORPUSCULAR HEMOGLOBIN 27.9 PG (28-34); MEAN CORPUSCULAR HGB CONC 33.5 g/dL (30-36); MEAN PLATELET VOLUME 7.7 FL (6.5-11.5); MONOCYTE# 0.5 X10e3 (0-1.0); MONOCYTE% 5.3 % (3.0-12.0); NEUTROPHIL% 40.9 % (40-75); PLATELET COUNT 434 X10e3 (140-420); RED BLOOD COUNT 3.33 X10e (3.90-5.30); WHITE BLOOD COUNT 9.7 X10e3 (4.0-10.5)
[2016-10-11 05:51] LABS: DIFF IND NO
[2016-10-11 07:13] LABS: ALBUMIN SERUM 2.8 g/dL (3.5-5.0); BILIRUBIN,TOTAL 0.2 mg/dL (0.2-2.0); BUN/CREATININE RATIO 12.38; CALCIUM SERUM 8.2 mg/dL (8.4-10.2); CREATININE SERUM 2.1 mg/dL (0.6-1.4); GLOM FILT RATE Estimated 32.4 mL/min (>60); PROTEIN TOTAL SERUM 6.9 g/dL (6.0-8.3)
[2016-10-11 09:00] LABS: FOLATE (FOLIC ACID) 9.2 ng/mL (>5.8)
[2016-10-11] MEDS ORDERED: HYDRALAZINE HCL50 MG PO (19:37)
[2016-10-11] MEDS ORDERED: OXYCODONE15 M1 PO (19:38)
[2016-10-11] MEDS ORDERED: XARELTO15 MG PO (19:38)
== END 2016-10-11 20:00 | disposition home or self-care (01) | DRG 300 ==
LOC: CED 23:59 → CEDOF 10-09 05:20 → C5C 10-09 15:58
PROVIDERS: Emergency Medicine; Hospitalist
PROC: B24BYZZ Ultrasonography of Heart with Aorta using Other Contrast (ICD-10-PCS; principal; 2016-10-09)
DX: I82.C11 Acute embolism and thrombosis of right internal jugular vein (principal); N17.9 Acute kidney failure, unspecified; E11.22 Type 2 diabetes mellitus with diabetic chronic kidney disease; E11.65 Type 2 diabetes mellitus with hyperglycemia; N18.4 Chronic kidney disease, stage 4 (severe); G62.9 Polyneuropathy, unspecified; E11.43 Type 2 diabetes mellitus with diabetic autonomic (poly)neuropathy; I82.B11 Acute embolism and thrombosis of right subclavian vein; I82.612 Acute embolism and thrombosis of superficial veins of left upper extremity; Z79.4 Long term (current) use of insulin; K31.84 Gastroparesis; J44.9 Chronic obstructive pulmonary disease, unspecified; D63.1 Anemia in chronic kidney disease; Z79.01 Long term (current) use of anticoagulants; Z86.14 Personal history of Methicillin resistant Staphylococcus aureus infection; Z88.5 Allergy status to narcotic agent; Z88.8 Allergy status to other drugs, medicaments and biological substances; I12.9 Hypertensive chronic kidney disease with stage 1 through stage 4 chronic kidney disease, or unspecified chronic kidney disease; E66.9 Obesity, unspecified; G89.29 Other chronic pain; F17.210 Nicotine dependence, cigarettes, uncomplicated; Z83.3 Family history of diabetes mellitus; R16.0 Hepatomegaly, not elsewhere classified; Z68.37 Body mass index [BMI] 37.0-37.9, adult; I25.2 Old myocardial infarction; K52.9 Noninfective gastroenteritis and colitis, unspecified
CPT/HCPCS: 71250; 80048; 80053; 80076; 82010; 82150; 82550; 82553; 82607; 82728; 82746; 82947; 83540; 83550; 83690; 84484; 85025; 93005; 93306; 93882; 93970; 96374; 96375; 96376; 99291; C9113; J0360; J1170; J1644; J1650; J1815; J2405; J2550

== ENCOUNTER 2016-10-20 19:22 | Inpatient (IN) | payer MEDICARE, OTHER ==
--- NOTE | ~2016-10-20 | DS ---
Unit #: [id number] #: [id number] Patient: JIMENEZ KHALIL [id number] [address] [address] [id number] I MR#: [id number] NAME: JIMENEZ KHALIL ROOM: [facility] Age: 46 Sex: F Admission Date: 10/24/2016 : 1970 Discharge Date: 10/30/2016 Attending Physician: Elian Santana M.D. DISCHARGE SUMMARY DISCHARGE DIAGNOSES 1. Acute renal failure on chronic kidney disease. 2. Accelerated hypertension. 3. History of gastroparesis. 4. Chronic obstructive pulmonary disease. 5. Chronic pain. 6. Anemia of chronic disease. 7. History of deep venous thrombosis, on chronic anticoagulation. CONSULTS DURING THIS HOSPITAL STAY 1. Dr. Moreno, Endocrinology. 2. Dr. Jagjit Ledesma, Nephrology. LABORATORY, DIAGNOSTICS, AND PROCEDURES DURING THIS HOSPITAL STAY 1. Renal ultrasound normal. 2. Lower extremity ultrasound with no current evidence of DVT. DISCHARGE MEDICATIONS 1. Xarelto 15 mg p.o. b.i.d. 2. Neurontin 800 mg t.i.d. 3. Phenergan 25 mg q.6 hours p.r.n. for nausea. 4. Norvasc 10 mg daily. 5. Toprol-XL 100 mg p.o. daily. 6. Lasix 40 mg q.a.m. 7. Catapres 0.3 mg p.o. t.i.d. 8. Hydralazine 100 mg t.i.d. 9. Levemir 50 units subcutaneous b.i.d. 10. NovoLog 20 units subcutaneous t.i.d. with meals. 11. [place] 5/325 at 1 or 2 tablets q.4-6 p.r.n. for pain. 12. Oxycodone 15 mg p.o. t.i.d. p.r.n. for pain. 13. Plavix 75 mg daily. 14. Vitamin D 1000 units daily. HISTORY OF PRESENT ILLNESS Please refer to History and Physical for initial presentation on this female. ACTIVE PROBLEMS DIAGNOSED Acute renal failure on chronic kidney disease. Discharge day BUN and creatinine 29 and 1.7. Patient was followed by Nephrology. Stable from Nephrology standpoint to be discharged with outpatient followup with Nephrology. Accelerated hypertension, currently much better controlled. Continue Unit #: [id number] #: [id number] Patient: JIMENEZ KHALIL blood pressure medications as above. See discharge medication reconciliation. Outpatient followup with primary care physician. History of gastroparesis, currently tolerating p.o. diet. History of COPD, stable at baseline. Chronic pain. Continue current pain management as above. Provided prescription for [place] with 24 pills and oxycodone with 12 pills. Anemia of chronic disease, stable. History of upper extremity DVT with subclavian vein DVT, on Xarelto. Most recent ultrasound shows no clot present anymore. Recommend to follow up with either primary care physician or tax professional as an outpatient to make a decision for further need for being on Xarelto. DISPOSITION Home. FOLLOWUP With primary care physician in two to three days, with Nephrology next week, with Endocrinology as an outpatient, and Hematology as an outpatient. Dictated by... Dmaaso Goldberg/jessi TD: 10/30/2016 17:52 JOB #: [id number] DISCHARGE SUMMARY Page 1 of 1 X Elian Santana MD X DISCHARGE SUMMARY
--- NOTE | ~2016-10-20 | EKG ---
PATIENT: JIMENEZ KHALIL UNIT #: [id number] Ventricular Rate: 99 BPM Atrial Rate: 99 BPM P-R Interval: 150 ms QRS Duration: 74 ms Q-T Interval: 374 ms QTC Calculation(Bezet): 479 ms P Naper: 78 degrees Calculated R Naper: 30 degrees Calculated T Naper: 79 degrees Diagnosis Line: Normal sinus rhythm Diagnosis Line: Biatrial enlargement Diagnosis Line: Septal infarct , age undetermined Diagnosis Line: Abnormal ECG Diagnosis Line: When compared with ECG of 09-OCT-2016 03:41, Diagnosis Line: No significant change was found Diagnosis Line: Confirmed by ANGY MCLAUGHLIN MD ([id number]) on 10/20/2016 Diagnosis Line: 10:37:40 PM INTERPRETING MD: LISSETTE JACKMAN
--- NOTE | ~2016-10-20 | CO ---
Unit #: [id number] #: [id number] Patient: JOYCE KHALIL [id number] [address] [place], [place] [address] [id number] I MR#: [id number] NAME: JOYCE KHALIL ROOM: [facility] Age: 46 Sex: F Admission Date: 10/20/2016 : 1970 Attending Physician: Elian Santana M.D. Primary Care Physician: No Primary Care Physician Consultation Date: 10/22/2016 CONSULTATION REPORT REASON FOR CONSULTATION Abnormal thyroid function test. Ms. Joyce Khalil is a 46-year-old white female who is known to me from his previous admission and history of type 2 diabetes mellitus, associated with complicated severe gastroparesis, who presented with the intractable vomiting and unable to take any medicines. She had elevated blood pressure on admission. On her further evaluation, her TSH was abnormal. I have been asked to see the patient for further management and evaluation. MEDICAL HISTORY Type 2 diabetes mellitus, gastroparesis, peripheral neuropathy, hypertension, anemia of chronic disease, diastolic heart failure, DVT, right jugular vein internal vein depression. PAST SURGICAL HISTORY Cholecystectomy, tonsillectomy, tubal ligation, EGD. HOME MEDICATION List is reviewed. Patient is on oxycodone, clonidine, Levemir, Phenergan, Toprol, Norvasc. SOCIAL HISTORY Lives at home. She continues to smoke, been smoking more than 20 years. FAMILY HISTORY Diabetes in mother, coronary artery disease, and hypertension. REVIEW OF SYSTEMS Twelve point review of system is completed. Please see HPI. It is remarkable for the weight loss, nausea, vomiting. The rest of the review of system is unremarkable. PHYSICAL EXAMINATION GENERAL: She is awake and alert, comfortable, no acute distress. VITAL SIGNS: Temperature 97.7, pulse is 90, blood pressure is 123/76. HEENT: EOMI. Pupils equally reactive to light. NECK: Supple. No thyromegaly noted. CHEST: Good air entry. CVS: Regular rhythm. No murmurs. ABDOMEN: Soft, nontender. Bowel sounds positive. EXTREMITIES: No edema or ulcers noted. DIAGNOSTIC STUDIES Unit #: [id number] #: [id number] Patient: JOYCE KHALIL LABORATORY RESULTS: Labs were reviewed. Creatinine is 1.5. TSH is 0.24, free T4 (1) . ASSESSMENT 1. Abnormal thyroid function test, most likely consistent with euthyroid sick syndrome. Hyperthyroidism is very unlikely. 2. Intractable nausea and vomiting, most likely due to gastroparesis. Recommend this strongly for the Reglan. 3. Type 2 diabetes mellitus. PLAN Patient is euthyroid sick syndrome. No need for any further treatment or workup. Discussed with patient the need to see the contractor field hauling for further gastroparesis evaluation and treatment. Dictated by... Damaso Levin/lisa TD: 10/23/2016 08:26 JOB #: [id number] CONSULTATION REPORT Page 1 of 1 X Sherry Moreno MD X CONSULTATION REPORT
--- NOTE | ~2016-10-20 | CT71 ---
[facility] A Service of [facility] RADIOLOGY TEXT RESULTS PATIENT: JIMENEZ KHALIL LOCATION: [facility] [address]-09 : [birth year] UNIT #: [id number] AGE: [address]: Elian Santana MD SEX: F ORDER DR: [id number] [facility] [address]. [place], [place] [address] [id number] MR#: [id number] Acc #: [id number] NAME: JIMENEZ KHALIL : 1970 SEX: F STUDY DATE/TIME: 10/20/2016 20:19 UNIT: [facility] ROOM: STUDY DESCRIPTION: CT Head Wo Contrast Attending Physician: Vladimir Kelley D.O. Ordering Physician: Vladimir Kelley D.O. Primary Care Physician: No Primary Care Physician MEDICAL IMAGING REPORT This report is preliminary unless electronic signature is present EXAM Head CT without contrast 10/20/2016 HISTORY Headache for 2 days. No known injury. TECHNIQUE Axial noncontrast images were obtained from the skull base to the vertex. This CT exam was performed with one or more of the following radiation dose reduction techniques: automatic exposure control, adjustment of mA and/or kV according to patient size, and iterative reconstruction. FINDINGS Ventricular size and configuration are normal. There is no evidence of acute infarct or hemorrhage. There are no extraaxial fluid collections. No mass lesion or mass effect is seen. There are no skull fractures. IMPRESSION Normal noncontrast head CT. Dictated by... Abdoulaye Morales M.D. THIS IS AN ELECTRONICALLY VERIFIED REPORT Abdoulaye Morales M.D. at 10/21/2016 7:30 AM MAKENZIE/aubree TD: 10/20/2016 23:58 JOB #: [id number] MEDICAL IMAGING REPORT [facility] A Service of [facility] RADIOLOGY TEXT RESULTS PATIENT: JIMENEZ KHALIL LOCATION: [facility] [address]-89 : [birth year] UNIT #: [id number] AGE: [address]: Elian Santana MD SEX: F ORDER DR: Page 1 of 1 COPY
--- NOTE | ~2016-10-20 | CO ---
Unit #: [id number] #: [id number] Patient: JIMENEZ KHALIL [id number] [address] [address] [id number] I MR#: [id number] NAME: JIMENEZ KHALIL ROOM: [facility] Age: 46 Sex: F Admission Date: 10/20/2016 : 1970 Attending Physician: Elian Santana M.D. Primary Care Physician: No Primary Care Physician CONSULTATION REPORT REASON FOR CONSULTATION Elevated creatinine level. HISTORY OF PRESENT ILLNESS The patient is a 46-year-old -Chinese female with known history of hypertension, type 2 diabetes, diabetic gastroparesis, came in with chest pain and vomiting for several days, unable to keep food down and poor p.o. intake. No noted hypotension. Noted to have a creatinine level of 1.5 on discharge last week and now comes in with an elevated creatinine level of 2.7. The patient does not admit to NSAID use. No recent IV contrast. The ejection fraction previously is 55% with normal coronary arteries on cardiac catheterization in 2014. The home medications included Zestril. The patient does not report any diarrhea, any vomiting. PAST MEDICAL HISTORY 1. Hypertension. 2. Type 2 diabetes. 3. Previous admission with accelerated hypertension. 4. History of peripheral neuropathy. 5. History of chronic anemia. 6. Chronic kidney disease stage 3. Patient did not see us in the office as requested. 7. History of obesity. PAST SURGICAL HISTORY 1. Cholecystectomy. 2. Tonsillectomy. 3. Tubal ligation. 4. EGD. 5. Colonoscopy. 6. Cardiac catheterization in 2014 with normal coronaries. HOME MEDICATIONS 1. Toprol 100 mg twice daily. 2. Norvasc 10 mg daily. 3. Plavix 75 mg daily. 4. Levemir 40 units twice daily. 5. Clonidine daily. 6. Zestril 20 twice daily. 7. Gabapentin 800 three times daily. 8. Phenergan. 9. NovoLog. 10. Hydralazine. 11. Xarelto for DVT. Unit #: [id number] #: [id number] Patient: JIMENEZ KHALIL SOCIAL HISTORY Patient lives at home. Has several pack years of smoking and continued to be currently a smoker. FAMILY HISTORY Significant for diabetes. No history of end-stage renal disease in family. REVIEW OF SYSTEMS CARDIOVASCULAR: As above. RESPIRATORY: No cough or expectoration. GASTROINTESTINAL: As above. GENITOURINARY: No hematuria. No dysuria. PHYSICAL EXAMINATION GENERAL: The patient is awake, alert, and oriented. VITAL SIGNS: Temperature is 98.3, heart rate is 90 per minute. The blood pressure is 122/65. HEENT: Head is atraumatic. Extraocular movements are intact. Nose: No discharge. Ears: No discharge. NECK: Supple. Sclerae are anicteric. CHEST: Clear. Air entry is equal bilaterally. Breathing is vesicular in nature. HEART: S1, S2 audible. There is no S3, no S4. ABDOMEN: Soft. There is no organomegaly. No guarding. No rigidity. No rebound tenderness. There is trace edema. CENTRAL NERVOUS SYSTEM: Motor system is intact. Cerebellar system is intact. DIAGNOSTIC STUDIES LABORATORY: The lab data is significant for sodium 134, potassium 4.4, chloride 110, CO2 of 21, BUN 30, creatinine 2.1, glucose 345, calcium 7.5. WBC 8.5, H and H is 9.4 and 28.2 with a platelet count of 340,000. IMPRESSION 1. Acute kidney injury: Likely hemodynamic related, increasing creatinine with prerenal azotemia complicated by Zestril, unlikely acute tubular necrosis. Renal ultrasound is awaited for possible obstruction. Will check urinary sediment for any evidence of acute tubular necrosis which seems unlikely. Will hold Zestril. Expect renal function to improve with hydration and holding Zestril. Will follow with you. 2. Nonanion gap metabolic acidosis: Likely secondary to acute kidney injury. Supplement intravenous bicarbonate. 3. Chest pain: Previous cardiac workup with cardiac catheterization in 2015, normal coronaries. 4. History of hypertension: Will hold Zestril and put her on clonidine. The patient seems to be noncompliant with her medications causing the presentation of uncontrolled blood pressure when she comes to the hospital. I have counseled her and requested her to regularly take her medications and also monitor her blood pressure at home and requested to followup with us in the office. 5. Diabetes. 6. Diabetic gastroparesis. 7. Hyponatremia: Likely hemodynamic related increased. 8. Check for vitamin D deficiency. 9. Anemia: Check iron stores. Unit #: [id number] #: [id number] Patient: JIMENEZ KHALIL Dictated by... Damaso Graham TD: 10/24/2016 10:02 JOB #: [id number] CONSULTATION REPORT Page 1 of 1 X Jagjit Ledesma MD X CONSULTATION REPORT
--- NOTE | ~2016-10-20 | HP ---
Unit #: [id number] #: [id number] Patient: JOYCE KHALIL [id number] [address] [address] [id number] I MR#: [id number] NAME: JOYCE KHALIL ROOM: [facility] Age: 46 Sex: F Admission Date: 10/21/2016 : 1970 Attending Physician: Elian Santana M.D. Primary Care Physician: Primary Care Physician No HISTORY AND PHYSICAL CHIEF COMPLAINT Chest discomfort and headache. HISTORY OF PRESENT ILLNESS Ms. Joyce Khalil is very well known to us with multiple admissions to the hospital. She was recently discharged from the hospital on 10/11/2016 after being treated for malignancy hypertension and acute DVT. The patient was discharged on multiple blood pressure medications and Xarelto. According to patient, she started having vomiting on Thursday and Thursday. She was trying to take her medication, but she thinks because of vomiting it did not get absorbed. She came because of chest discomfort which started yesterday. She was getting severe headache, came to the ER and is being admitted for evaluation and for treatment of malignant hypertension. The patient has been evaluated by Cardiology already. She has history of diastolic congestive heart failure. She had cardiac catheterization done in 2014 and showed normal coronaries. The patient is still continuing to complain of nausea. PAST MEDICAL HISTORY 1. Hypertension. 2. Diabetes mellitus type 2. 3. Gastroparesis. 4. History of peripheral neuropathy. 5. Chronic anemia. 6. COPD. 7. Chronic kidney disease. 8. Diastolic congestive heart failure. 9. Obesity. 10. DVT in the right internal jugular vein. 11. Depression. PAST SURGICAL HISTORY 1. History of cardiac catheterization in December 2014 with normal coronaries. 2. Cholecystectomy. 3. Tonsillectomy. 4. Tubal ligation. 5. EGD. 6. Colonoscopy. HOME MEDICATIONS 1. Toprol XL 100 mg b.i.d. 2. Norvasc 10 mg daily. 3. Plavix 75 mg daily. Unit #: [id number] #: [id number] Patient: JOYCE KHALIL 4. Levemir 40 units subcu b.i.d. 5. Clonidine 0.3 mg patch daily. 6. Zestril 20 mg b.i.d. 7. Gabapentin 800 mg t.i.d. 8. Oxycodone 15 mg t.i.d. 9. Phenergan 25 mg daily p.r.n. 10. NovoLog 15 units subcu t.i.d. with meals. 11. Hydralazine 50 mg q.6 h. 12. Xarelto 15 mg b.i.d. SOCIAL HISTORY Patient lives at home. She is a smoker, continues to smoke, has been smoking for more than 20 years or so. Denies any drug abuse. FAMILY HISTORY Positive for diabetes in mother. Also family history of coronary artery disease and hypertension. REVIEW OF SYSTEMS As per history of present illness. No history of dizziness or syncopal episode. No skin problem. Ten point review of systems was done. PHYSICAL EXAMINATION VITAL SIGNS: Blood pressure 192/108, respiratory rate 17, pulse 98, temperature 97.7, oxygen saturation is 97%. GENERAL: The patient is being examined room 553. Seems to be stable in no respiratory distress. HEAD: Normocephalic. Eye movements are normal. No nystagmus. NECK: Supple. CHEST: Fair air entry, no additional sounds. HEART: S1, S2 positive, regular rhythm. No murmur is heard. ABDOMEN: Soft. Bowel sounds are positive all over. No abdominal mass felt. EXTREMITIES: Negative edema. Pulses are palpable. Skin seems to be normal. RECTAL: Deferred. NEUROLOGIC: Awake, alert, oriented x3. No focal neurologic deficit. DIAGNOSTIC STUDIES LABORATORY: In the ER shows WBC 6.7, hemoglobin 10.3, hematocrit 30.6, platelet count 427. Troponin less than 0.05. Sodium 138, potassium 4.2, chloride 106, BUN 18, creatinine 1.5, liver enzymes are stable, glucose 222. IMAGING: CT scan of the head without contrast was done which shows normal CT. Chest x-ray single view shows normal portable chest. ASSESSMENT AND PLAN Patient is being admitted to the telemetry unit with the diagnosis of: 1. Malignant hypertension. 2. Atypical chest pain. 3. Recent acute DVT. 4. Nausea and vomiting with history of chronic gastroparesis. 5. Chronic kidney disease. 6. Diabetes mellitus type 2. 7. Chronic obstructive pulmonary disease. Unit #: [id number] #: [id number] Patient: KHALIL,JOYCE 8. Tobacco abuse. PLAN 1. Admit to telemetry unit. 2. Home medications have been reviewed. Blood pressure medications are being adjusted. 3. Cardiology has been consulted. 4. Accu-Cheks a.c. and h.s. with insulin sliding scale has been started. 5. Diabetic healthy-heart diet will be started. 6. Patient is on Xarelto, will continue same. 7. Hydralazine 10 mg IV for systolic blood pressure more than 160. 8. Plan of care has been discussed with patient. 9. Tobacco cessation counseling done. Dictated by Damaso Carranza/li TD: 10/21/2016 16:27 JOB #: [id number] HISTORY AND PHYSICAL Page 1 of 1 X Dorothea Willis MD X HISTORY AND PHYSICAL
--- NOTE | ~2016-10-20 | CR72 ---
[facility] A Service of [facility] & [facility] RADIOLOGY TEXT RESULTS PATIENT: JIMENEZ KHALIL LOCATION: [facility] [address]-44 : [birth year] UNIT #: [id number] AGE: [address]: Elian Santana MD SEX: F ORDER DR: [id number] [facility] [address] [place], [place] [address] [id number] I MR#: [id number] Acc #: [id number] NAME: JIMENEZ KHALIL : 1970 SEX: F STUDY DATE/TIME: 10/21/2016 2:04 UNIT: [facility] ROOM: [facility] [place] [facility] [place] STUDY DESCRIPTION: CR Chest Single View Portable Attending Physician: Elian Santana M.D. Ordering Physician: Vladimir Kelley D.O. Primary Care Physician: Primary Care Physician No MEDICAL IMAGING REPORT This report is preliminary unless electronic signature is present EXAM AP portable chest, 10/21/2016 HISTORY PICC placement. TECHNIQUE AP portable chest x-ray. FINDINGS Newly placed left arm PICC tip is superimposed over the upper left brachiocephalic vein. No change since the previous study obtained yesterday. IMPRESSION PICC tip in the left brachiocephalic vein. Dictated by... Jefe Salcido M.D. THIS IS AN ELECTRONICALLY VERIFIED REPORT Jefe Salcido M.D. at 10/21/2016 6:01 AM Elsa TD: 10/21/2016 04:53 JOB #: [id number] MEDICAL IMAGING REPORT Page 1 of 1 COPY
--- NOTE | ~2016-10-20 | CR72 ---
[facility] A Service of [facility] & [facility] RADIOLOGY TEXT RESULTS PATIENT: JIMENEZ KHALIL [facility] [id number] : [birth year] UNIT #: [id number] AGE: [address]: Elian Santana MD SEX: F ORDER DR: [id number] [facility] [address] [facility]. [place], [place] [address] [id number] MR#: [id number] Acc #: [id number] NAME: JIMENEZ KHALIL : 1970 SEX: F STUDY DATE/TIME: 10/20/2016 19:29 UNIT: [facility] ROOM: STUDY DESCRIPTION: CR Chest Single View Portable Attending Physician: Vladimir Kelley D.O. Ordering Physician: Vladimir Kelley D.O. Primary Care Physician: No Primary Care Physician MEDICAL IMAGING REPORT This report is preliminary unless electronic signature is present EXAM Portable chest, 10/20/2016 HISTORY Chest pain and shortness of breath and cough for 1 day. Benign essential hypertension. FINDINGS A single AP portable view of the chest shows both lungs to be clear. The heart is normal in size. The mediastinal contour is normal. No significant bone abnormalities are seen. IMPRESSION Normal portable chest. Dictated by... Abdoulaye Morales M.D. THIS IS AN ELECTRONICALLY VERIFIED REPORT Abdoulaye Morales M.D. at 10/21/2016 7:30 AM MAKENZIE/aubree TD: 10/20/2016 23:17 JOB #: [id number] MEDICAL IMAGING REPORT Page 1 of 1 COPY
--- NOTE | ~2016-10-20 | US77 ---
[facility] A Service [facility] RADIOLOGY TEXT RESULTS PATIENT: JIMENEZ KHALIL LOCATION: [facility] : 74 UNIT #: [id number] AGE: [address]: Elian Santana MD SEX: F ORDER DR: [id number] [id number] [place], [place] [address] [id number] I MR#: [id number] Acc #: [id number] NAME: JIMENEZ KHALIL : 1970 SEX: F STUDY DATE/TIME: 10/23/2016 16:55 UNIT: [facility] ROOM: [facility] STUDY DESCRIPTION: US Kidney Bilateral Complete Attending Physician: Elian Santana M.D. Ordering Physician: Elian Santana M.D. Primary Care Physician: Primary Care Physician No MEDICAL IMAGING REPORT This report is preliminary unless electronic signature is present EXAM Renal sonogram HISTORY Acute kidney injury superimposed on chronic kidney disease. Difficulty urinating. TECHNIQUE Ultrasound evaluation of the kidneys was performed with frye-scale and color-flow imaging. FINDINGS The right kidney measures 11 x 4.8 cm with no evidence of mass, cyst or hydronephrosis. The left kidney measures 10.8 x 6.5 cm with no evidence of mass, cyst or hydronephrosis. The bladder has a smooth contour. IMPRESSION Normal. Dictated by... Estuardo Castro M.D. THIS IS AN ELECTRONICALLY VERIFIED REPORT Estuardo Castro M.D. at 10/24/2016 10:15 AM RLF/to TD: 10/23/2016 17:15 JOB #: [id number] [facility] A Service [facility] RADIOLOGY TEXT RESULTS PATIENT: JIMENEZ KHALIL LOCATION: [facility] : 74 UNIT #: [id number] AGE: [address]: Elian Santana MD SEX: F ORDER DR: MEDICAL IMAGING REPORT Page 1 of 1 COPY
--- NOTE | ~2016-10-20 | CO ---
Unit #: [id number] #: [id number] Patient: JIMENEZ KHALIL [id number] [address] [address] [id number] I MR#: [id number] NAME: JIMENEZ KHALIL ROOM: [address] Age: 46 Sex: F Admission Date: 10/21/2016 : 1970 Attending Physician: Elian Santana M.D. Primary Care Physician: Verna Primary Care Physician Consultation Date: 10/21/2016 CONSULTATION REPORT CHIEF COMPLAINT Chest discomfort. HISTORY OF PRESENT ILLNESS Ms. Khalil is well known to our service. She follows with Dr. Salas in the office. She has a history of malignant hypertension as well as chronic pain. She has a history of diastolic congestive heart failure with an ejection fraction of 55%. She had a coronary catheterization 12/2014 which showed normal coronary arteries. She presents this admission complaining that since Thursday she has had a constant pain in her upper chest. It is a thumping feeling. She has taken her blood pressure medication, which did not relieve her discomfort. It is associated with nausea. Nothing has made the pain worse. Nothing has made the pain better. The patient is currently still having this pain and requesting pain medication. PAST MEDICAL HISTORY 1. Malignant hypertension. 2. Diabetes mellitus type 2. 3. Gastroparesis. 4. Chronic pain. 5. Peripheral neuropathy. 6. Anemia of chronic disease. 7. Chronic obstructive pulmonary disease. 8. Chronic kidney disease. 9. Diastolic congestive heart failure with ejection fraction 55%. 10. Depression. 11. Obesity. 12. Deep venous thrombosis of the right internal jugular vein 10/09/2016. PAST SURGICAL HISTORY 1. Coronary catheterization 12/2014 with normal coronary arteries. 2. Cholecystectomy. 3. Tonsillectomy. 4. Tubal ligation. 5. EGDs and colonoscopies. SOCIAL HISTORY The patient lives with her daughter. She smokes one pack per day for 20 plus years. Denies illicit drug use. FAMILY HISTORY Positive for diabetes in her mother and hypertension as well as coronary disease. Father's history is unknown. Unit #: [id number] #: [id number] Patient: JIMENEZ KHALIL HOME MEDICATIONS 1. Zestril 20 mg b.i.d. 2. Gabapentin 800 mg t.i.d. 3. Oxycodone 15 mg t.i.d. 4. Phenergan 25 mg daily. 5. NovoLog 15 units subcutaneous t.i.d. 6. Toprol XL 100 mg b.i.d. 7. Norvasc 10 mg daily. 8. Plavix 75 mg daily. 9. Levemir 40 units subcutaneous b.i.d. 10. Clonidine 0.3 mg daily. 11. Hydralazine 50 mg q.6 h. 12. Xarelto 15 mg b.i.d. REVIEW OF SYSTEMS Negative fever. Negative chills. No dysphagia. No shortness of air. No cough. No bright red bleeding per rectum. No hematuria. Positive for nausea, abdominal discomfort, chest discomfort. Mild lower extremity swelling. Positive chronic pain. PHYSICAL EXAMINATION GENERAL: Well-developed, well-nourished female who is tearful, complaining of pain. VITALS: Temperature 98.9, pulse 102, respiratory rate 16, blood pressure on admission 216/102, at 4:30 a.m. 192/89. Height 5'8", weight 106.59 kg, BMI 35. HEENT: Normocephalic, atraumatic. No xanthelasma. No jugular venous distension. No elevated CVP. NECK: Supple. LUNGS: Clear to auscultation bilaterally anteriorly and posteriorly. HEART: S1 and S2. No S3 or S4. No murmur, rub or gallop. No lift. PMI is nondisplaced. ABDOMEN: Obese. Positive bowel sounds. EXTREMITIES: Trace lower extremity edema. Two plus pulses bilaterally. SKIN: No rash. SPINE: No scoliosis. DIAGNOSTIC STUDIES IMAGING: Chest x-ray 10/20/2016 shows a normal portable chest. CT head shows normal noncontrast head CT. Repeat chest x-ray in the a.m. shows a PICC tip in the left brachiocephalic vein. LABORATORY: Chemistry, sodium 138, potassium 4.2, chloride 106, CO2 22, BUN 18, creatinine 1.5, glucose 222 (302 on admission). Total protein 7.4, albumin 2.8, AST 15, ALT 13, alkaline phosphatase 90, amylase 16, lipase 20. PT 11.1, INR 1.0, PTT 27.9. Spymd-nm-cipz troponin less than 0.05. Hemoglobin 10.3, hematocrit 30.6, white blood cell count 6.7, platelet count 427. ASSESSMENT 1. Malignant hypertension. Hypertension remains at poor control. 2. Recent acute DVT. The patient was discharged home on Xarelto. 3. Chronic kidney disease. Creatinine stable. 4. Continued tobacco abuse. Unit #: [id number] #: [id number] Patient: JIMENEZ KHALIL 5. Chronic obstructive pulmonary disease. 6. Insulin dependent diabetes mellitus. 7. Anemia of chronic disease, stable. 8. Chronic pain. 9. Noncardiac chest discomfort with troponin negative times one. Catheterization 12/2014 showed normal coronary arteries. Twelve lead EKG shows a normal sinus rhythm. Ventricular rate 99. No ST-T abnormalities. No acute changes. PLAN We will adjust hypertensive medications. Recommend GI consult. We will change her hydralazine to 100 mg t.i.d. Will follow for any further recommendations. We will also check a lipid panel. We will add to blood in lab. The patient had lipids done 07/2014 that at that time showed cholesterol 152, triglycerides 240, LDL 57, HDL 47. She also had a TSH done in 2015 which was 1.22. We will also check a TSH. We will also add PPI. Recommend GI consult. Dictated by... Betzy Kumar, Delaney.P.R.N. for Gentry Szymanski M.D. LATANYA/cynthia TD: 10/21/2016 09:50 JOB #: [id number] CONSULTATION REPORT Page 1 of 1 X X CONSULTATION REPORT
--- NOTE | ~2016-10-20 | US140 ---
[facility] A Service of [facility] RADIOLOGY TEXT RESULTS PATIENT: JIMENEZ KHALIL LOCATION: [facility] 5508-27 : [birth year] UNIT #: [id number] AGE: [address]: Elian Santana MD SEX: F ORDER DR: [id number] [facility] [address]. [place], [place] [address] [id number] I MR#: [id number] Acc #: [id number] NAME: JIMENEZ KHALIL : 1970 SEX: F STUDY DATE/TIME: 10/28/2016 16:44 UNIT: [facility] ROOM: [facility] STUDY DESCRIPTION: US UE Veins Unilat or Ltd Stdy Attending Physician: Elian Santana M.D. Ordering Physician: Dorothea Willis M.D. Primary Care Physician: Primary Care Physician No MEDICAL IMAGING REPORT This report is preliminary unless electronic signature is present EXAM Right upper extremity duplex Doppler venous ultrasound COMPARISON Bilateral upper extremity venous duplex Doppler ultrasound dated October 10, 2016. INDICATIONS 46-year-old female with right upper extremity pain and swelling for 1 month. History of deep venous thrombosis. FINDINGS Right internal jugular vein is fully compressible with expected internal color flow and waveform. The right subclavian vein is fully compressible with internal color flow and expected waveform. The right axillary vein appears fully compressible with expected internal color flow and waveform. The right basilic vein appears fully compressible. The right cephalic and brachial veins are fully compressible and color flow is demonstrated in the brachial veins. IMPRESSION No current evidence of deep venous thrombosis or superficial venous thrombosis in the right upper extremity. Previously noted right internal jugular vein thrombosis extending into the subclavian vein is no longer visualized. Dictated by... Mal Shah M.D. THIS IS AN ELECTRONICALLY VERIFIED REPORT Mal Shah M.D. at 11/02/2016 7:30 PM [facility]/psc [facility] A Service of [facility] RADIOLOGY TEXT RESULTS PATIENT: JIMENEZ KHALIL LOCATION: [facility] 5508-27 : [birth year] UNIT #: [id number] AGE: [address]: Elian Santana MD SEX: F ORDER DR: TD: 10/28/2016 20:05 JOB #: [id number] MEDICAL IMAGING REPORT Page 1 of 1 COPY
[2016-10-20 19:13] LABS: BASOPHIL% 0.6 % (0-2.5); EOSINOPHIL# 0.2 X10e3 (0-0.7); EOSINOPHIL% 3.5 % (0.0-7.0); HEMATOCRIT 31.7 % (35.0-45.0); HEMOGLOBIN 10.6 gm/dL (12.0-16.0); LYMPHOCYTE# 1.9 X10e3 (1.0-3.5); LYMPHOCYTE% 28.4 % (17.0-45.0); MEAN CELL VOLUME 82.7 FL (83-96); MEAN CORPUSCULAR HEMOGLOBIN 27.5 PG (28-34); MEAN CORPUSCULAR HGB CONC 33.3 g/dL (30-36); MEAN PLATELET VOLUME 8.5 FL (6.5-11.5); MONOCYTE# 0.3 X10e3 (0-1.0); NEUTROPHIL# 4.1 X10e3 (1.5-7.1); NEUTROPHIL% 62.5 % (40-75); PLATELET COUNT 419 X10e3 (140-420); RED BLOOD COUNT 3.84 X10e (3.90-5.30); RED CELL DISTRIBUTION WIDTH 15.6 % (11.0-15.5); WHITE BLOOD COUNT 6.5 X10e3 (4.0-10.5)
[2016-10-20 19:16] LABS: DIFF IND NO
[~2016-10-20 19:22] MED LIST changes: +CLONIDINE1 EAC2 TD; +GABAPENTIN800 MG PO; +NOVOLOG100 UNIT/1 SUBQ; +OXYCODONE15 M1 PO; +PHENERGAN25 MG PO; +TOPROL XL100 MG PO; +XARELTO15 MG PO
[2016-10-20 19:29] LABS: PARTIAL THROMBOPLASTIN TIME 27.9 SECONDS (23.5-31.3)
[2016-10-20 19:38] LABS: ALKALINE PHOSPHATASE 94 U/L (32-92); ALT (SGPT) 14 U/L (10-40); AST (SGOT) 15 U/L (10-42); BILIRUBIN,TOTAL 0.6 mg/dL (0.2-2.0); BLOOD UREA NITROGEN 19 mg/dL (9-23); BUN/CREATININE RATIO 13.57; CARBON DIOXIDE 22 mmol/L (22-31); CHLORIDE 105 mmol/L (100-111); CREATININE SERUM 1.4 mg/dL (0.6-1.4); GLOM FILT RATE Estimated 52.8 mL/min (>60); GLUCOSE FASTING 302 mg/dL (70-110); POTASSIUM 4.6 mmol/L (3.5-5.1); PROTEIN TOTAL SERUM 8.1 g/dL (6.0-8.3); SODIUM 137 mmol/L (135-145)
[2016-10-20 19:42] LABS: BILIRUBIN, DIRECT <0.1 mg/dL (0.0-0.2); BILIRUBIN,INDIRECT 0.5 mg/dL (0.0-0.9)
[2016-10-20 23:12] LABS: URINE SOURCE CLEAN CATCH
[2016-10-20 23:20] LABS: URINE APPEARANCE CLOUDY; URINE BILIRUBIN NEG (NEG); URINE BLOOD 2+ (NEG); URINE COLOR YELLOW; URINE GLUCOSE >1000 MG/DL (NEG); URINE KETONE TRACE (NEG); URINE LEUKOCYTE ESTERASE NEG (NEG); URINE NITRATE NEG (NEG); URINE PROTEIN 3+ (NEG); URINE SPECIFIC GRAVITY 1.022 (1.003-1.035); URINE UROBILINOGEN 0.2 MG/DL (NEG)
[2016-10-20 23:22] LABS: CULTURE INDICATED? YES; URINE BACTERIA AUWI 2+ (NEGATIVE); URINE SQUAMOUS EPITHELIAL CELL FEW /[HPF]
[2016-10-20 23:48] LABS: AMPHETAMINE NEG (NEG); BARBITURATES NEG (NEG); BENZODIAZEPINES NEG (NEG); COCAINE NEG (NEG); MARIJUANA NEG (NEG); OPIATES NEG (NEG); TRICYCLIC ANTIDEPRESSANTS POS (NEG); U METHADONE NEG (NEG)
[2016-10-21 04:26] LABS: BASOPHIL% 0.6 % (0-2.5); DIFF IND NO; EOSINOPHIL# 0.2 X10e3 (0-0.7); EOSINOPHIL% 2.9 % (0.0-7.0); HEMATOCRIT 30.6 % (35.0-45.0); HEMOGLOBIN 10.3 gm/dL (12.0-16.0); LYMPHOCYTE# 2.8 X10e3 (1.0-3.5); LYMPHOCYTE% 41.7 % (17.0-45.0); MEAN CELL VOLUME 81.9 FL (83-96); MEAN CORPUSCULAR HEMOGLOBIN 27.6 PG (28-34); MEAN CORPUSCULAR HGB CONC 33.6 g/dL (30-36); MEAN PLATELET VOLUME 8.1 FL (6.5-11.5); MONOCYTE# 0.5 X10e3 (0-1.0); MONOCYTE% 6.9 % (3.0-12.0); NEUTROPHIL# 3.2 X10e3 (1.5-7.1); NEUTROPHIL% 47.9 % (40-75); PLATELET COUNT 427 X10e3 (140-420); RED BLOOD COUNT 3.74 X10e (3.90-5.30); RED CELL DISTRIBUTION WIDTH 15.2 % (11.0-15.5); WHITE BLOOD COUNT 6.7 X10e3 (4.0-10.5)
[2016-10-21 04:30] LABS: POC - CKMB 5.4 ng/mL (0.0-7.9); POC - TROPONIN <0.05 ng/mL (<=0.05)
[2016-10-21 04:50] LABS: ALBUMIN SERUM 2.8 g/dL (3.5-5.0); BILIRUBIN,TOTAL 0.5 mg/dL (0.2-2.0); CALCIUM SERUM 9.1 mg/dL (8.4-10.2); CREATININE SERUM 1.5 mg/dL (0.6-1.4); GLOM FILT RATE Estimated 48.6 mL/min (>60); POTASSIUM 4.2 mmol/L (3.5-5.1); PROTEIN TOTAL SERUM 7.4 g/dL (6.0-8.3)
[2016-10-21 09:42] LABS: CHOLESTEROL 161 mg/dL (0-200); HDL CHOLESTEROL 35 mg/dL (35-95); LDL CHOLESTEROL 59 mg/dL (-130); LDL/HDL RATIO 2 RATIO (0-4); TRIGLYCERIDES 335 mg/dL (10-160)
[2016-10-23 05:18] LABS: HEMATOCRIT 28.2 % (35.0-45.0); HEMOGLOBIN 9.4 gm/dL (12.0-16.0); MEAN CORPUSCULAR HEMOGLOBIN 27.7 PG (28-34); MEAN CORPUSCULAR HGB CONC 33.3 g/dL (30-36); MEAN PLATELET VOLUME 7.8 FL (6.5-11.5); RED BLOOD COUNT 3.4 X10e (3.90-5.30); RED CELL DISTRIBUTION WIDTH 15.4 % (11.0-15.5); WHITE BLOOD COUNT 8.5 X10e3 (4.0-10.5)
[2016-10-23 05:46] LABS: BUN/CREATININE RATIO 11.85; CALCIUM SERUM 7.6 mg/dL (8.4-10.2); CREATININE SERUM 2.7 mg/dL (0.6-1.4); GLOM FILT RATE Estimated 23.9 mL/min (>60); POTASSIUM 4.2 mmol/L (3.5-5.1)
[2016-10-23 06:18] LABS: FREE T3 2.9 pg/mL (2.5-3.9)
[2016-10-23 06:19] LABS: FREE THYROXIN (T4) 0.95 ng/dL (0.58-1.64)
[2016-10-24 07:42] LABS: BUN/CREATININE RATIO 14.28; CALCIUM SERUM 7.5 mg/dL (8.4-10.2); CREATININE SERUM 2.1 mg/dL (0.6-1.4); GLOM FILT RATE Estimated 32.4 mL/min (>60); POTASSIUM 4.4 mmol/L (3.5-5.1)
[2016-10-24 09:53] LABS: IRON SERUM 29 ug/dL (28-170); TOTAL IRON BINDING CAPACITY 265 ug/dL (269-535); TRANSFERRIN 189 mg/dL (192-382); TRANSFERRIN SATURATION 11 % (20-50)
[2016-10-24 16:15] LABS: URINE APPEARANCE CLEAR; URINE BILIRUBIN NEG (NEG); URINE BLOOD NEG (NEG); URINE COLOR YELLOW; URINE GLUCOSE 500 MG/DL (NEG); URINE KETONE NEG (NEG); URINE LEUKOCYTE ESTERASE NEG (NEG); URINE NITRATE NEG (NEG); URINE PH 5.5 (5-8); URINE PROTEIN 3+ (NEG); URINE SPECIFIC GRAVITY 1.013 (1.003-1.035); URINE UROBILINOGEN 0.2 MG/DL (NEG)
[2016-10-24 16:18] LABS: URBCS1 AUWI 0-2 /[HPF] (0-2); URINE BACTERIA AUWI NEG (NEGATIVE); URINE SQUAMOUS EPITHELIAL CELL NONE SEEN /[HPF]; UWBCS1 AUWI 0-2 (0-5)
[2016-10-24 16:19] LABS: CULTURE INDICATED? NO
[2016-10-24 16:27] LABS: AMPHETAMINE NEG (NEG); BARBITURATES NEG (NEG); BENZODIAZEPINES NEG (NEG); COCAINE NEG (NEG); MARIJUANA NEG (NEG); OPIATES POS (NEG); TRICYCLIC ANTIDEPRESSANTS NEG (NEG); U METHADONE NEG (NEG)
[2016-10-24 17:03] LABS: CREATININE,RANDOM URINE 74 mg/dL; TOTAL PROTEIN,RANDOM URINE 228 mg/dl (<10)
[2016-10-25 06:10] LABS: HEMATOCRIT 24.6 % (35.0-45.0); HEMOGLOBIN 8.3 gm/dL (12.0-16.0); MEAN CELL VOLUME 83.2 FL (83-96); MEAN CORPUSCULAR HGB CONC 33.6 g/dL (30-36); MEAN PLATELET VOLUME 7.9 FL (6.5-11.5); RED BLOOD COUNT 2.95 X10e (3.90-5.30); RED CELL DISTRIBUTION WIDTH 15.6 % (11.0-15.5); WHITE BLOOD COUNT 6.8 X10e3 (4.0-10.5)
[2016-10-25 06:42] LABS: CALCIUM SERUM 8.1 mg/dL (8.4-10.2); GLOM FILT RATE Estimated 34.3 mL/min (>60); POTASSIUM 4.3 mmol/L (3.5-5.1)
[2016-10-25 13:19] LABS: IRON SERUM 40 ug/dL (28-170); TOTAL IRON BINDING CAPACITY 268 ug/dL (269-535); TRANSFERRIN SATURATION 15 % (20-50)
[2016-10-25 13:20] LABS: TRANSFERRIN 191 mg/dL (192-382)
[2016-10-26 07:34] LABS: BUN/CREATININE RATIO 19.44; CREATININE SERUM 1.8 mg/dL (0.6-1.4); POTASSIUM 4.7 mmol/L (3.5-5.1)
[2016-10-27 07:10] LABS: HEMOGLOBIN 8.5 gm/dL (12.0-16.0); MEAN CELL VOLUME 85.4 FL (83-96); MEAN CORPUSCULAR HEMOGLOBIN 27.9 PG (28-34); MEAN CORPUSCULAR HGB CONC 32.7 g/dL (30-36); MEAN PLATELET VOLUME 8.2 FL (6.5-11.5); RED BLOOD COUNT 3.05 X10e (3.90-5.30); RED CELL DISTRIBUTION WIDTH 15.7 % (11.0-15.5)
[2016-10-27 07:33] LABS: BUN/CREATININE RATIO 17.5; CALCIUM SERUM 8.3 mg/dL (8.4-10.2); GLOM FILT RATE Estimated 34.3 mL/min (>60); MAGNESIUM 1.5 mg/dL (1.6-3.0); PHOSPHOROUS 4.3 mg/dL (2.5-4.6)
[2016-10-27 07:38] LABS: POTASSIUM 5.6 mmol/L (3.5-5.1)
[2016-10-27 16:58] LABS: BUN/CREATININE RATIO 19.41; CALCIUM SERUM 8.5 mg/dL (8.4-10.2); CREATININE SERUM 1.7 mg/dL (0.6-1.4); GLOM FILT RATE Estimated 41.8 mL/min (>60); POTASSIUM 4.8 mmol/L (3.5-5.1)
[2016-10-28 06:39] LABS: BUN/CREATININE RATIO 17.64; CALCIUM SERUM 8.3 mg/dL (8.4-10.2); CREATININE SERUM 1.7 mg/dL (0.6-1.4); GLOM FILT RATE Estimated 41.8 mL/min (>60); POTASSIUM 5.4 mmol/L (3.5-5.1)
[2016-10-28 16:40] LABS: BUN/CREATININE RATIO 14.73; CALCIUM SERUM 7.9 mg/dL (8.4-10.2); CREATININE SERUM 1.9 mg/dL (0.6-1.4); GLOM FILT RATE Estimated 36.5 mL/min (>60); POTASSIUM 5.3 mmol/L (3.5-5.1)
[2016-10-28 17:29] LABS: MYELOPEROXIDASE AB (PNL) <1.0 AI (<1.0); PROTEINASE-3 AB (PNL) <1.0 AI (<1.0)
[2016-10-29 05:36] LABS: HEMATOCRIT 24.5 % (35.0-45.0); HEMOGLOBIN 8.1 gm/dL (12.0-16.0); MEAN CELL VOLUME 82.8 FL (83-96); MEAN CORPUSCULAR HEMOGLOBIN 27.5 PG (28-34); MEAN CORPUSCULAR HGB CONC 33.3 g/dL (30-36); MEAN PLATELET VOLUME 8.2 FL (6.5-11.5); RED BLOOD COUNT 2.95 X10e (3.90-5.30); RED CELL DISTRIBUTION WIDTH 15.6 % (11.0-15.5); WHITE BLOOD COUNT 7.7 X10e3 (4.0-10.5)
[2016-10-29 06:12] LABS: BUN/CREATININE RATIO 14.21; CREATININE SERUM 1.9 mg/dL (0.6-1.4); GLOM FILT RATE Estimated 36.5 mL/min (>60); POTASSIUM 4.4 mmol/L (3.5-5.1)
[2016-10-29 18:55] LABS: UPE RAND ALPHA1 GLOB 4 % (()); UPE RAND PROT/CREAT 2844 (21-161); UPE RANDOM ALB (PNL) 66 % (()); UPE RANDOM ALPHA 2 GLOB 5 % (()); UPE RANDOM BETA GLOB 11 % (()); UPE RANDOM GAMMA GLOB 14 % (()); UPE RANDOM TOTAL PROTEIN (PNL) 128 mg/dL (5-24)
[2016-10-30 05:43] LABS: BUN/CREATININE RATIO 17.05; CALCIUM SERUM 8.5 mg/dL (8.4-10.2); CREATININE SERUM 1.7 mg/dL (0.6-1.4); GLOM FILT RATE Estimated 41.8 mL/min (>60); POTASSIUM 4.8 mmol/L (3.5-5.1)
[2016-10-30 15:01] LABS: ANA SCREEN Negative (Negative); HEP C AB (HEPPAN) Nonreactive (Nonreactive); HEP C AB SIGNAL TO CUTOFF 0.02 ratio (<1.00); SPE A1GLOB (PNL) 0.3 g/dL (0.2-0.3); SPE A2GLOB (PNL) 0.8 g/dL (0.5-0.9); SPE ALB (PNL) 2.6 g/dL (3.8-4.8); SPE BETA 1 GLOBULIN 0.4 g/dL (0.4-0.6); SPE BETA 2 GLOBULIN 0.5 g/dL (0.2-0.5); SPE GAMMA (PNL) 1.4 g/dL (0.8-1.7)
[2016-10-30] MEDS ORDERED: LASIX PO (15:20)
[2016-10-30] MEDS ORDERED: VITAMIN D1000 UNIT PO (15:35)
[2016-10-30] MEDS ORDERED: HYDROCODON-ACE1 EAC9 PO (15:39)
[2016-10-30] MEDS ORDERED: CLONIDINE HCL0.3 MG PO (15:41)
[2016-11-01 05:40] LABS: COMPLEMENT C3 142 mg/dL (90-180); COMPLEMENT C4 36 mg/dL (16-47)
== END 2016-10-30 16:43 | disposition home or self-care (01) | DRG 683 ==
LOC: CED 19:22 → CEDOF 23:10 → C5B 10-24 17:13
PROVIDERS: Emergency Medicine; Hospitalist; Internal Medicine; Internal Medicine Nephrology; Physician Assistant Medical
PROC: 02HV33Z Insertion of Infusion Device into Superior Vena Cava, Percutaneous Approach (ICD-10-PCS; principal; 2016-10-21)
DX: N17.9 Acute kidney failure, unspecified (principal); I13.0 Hypertensive heart and chronic kidney disease with heart failure and stage 1 through stage 4 chronic kidney disease, or unspecified chronic kidney disease; E87.2 Acidosis; K31.84 Gastroparesis; I50.32 Chronic diastolic (congestive) heart failure; E11.22 Type 2 diabetes mellitus with diabetic chronic kidney disease; E87.1 Hypo-osmolality and hyponatremia; R07.89 Other chest pain; E11.42 Type 2 diabetes mellitus with diabetic polyneuropathy; R51 Headache; E11.43 Type 2 diabetes mellitus with diabetic autonomic (poly)neuropathy; J44.9 Chronic obstructive pulmonary disease, unspecified; E66.9 Obesity, unspecified; Z86.718 Personal history of other venous thrombosis and embolism; F32.9 Major depressive disorder, single episode, unspecified; Z90.49 Acquired absence of other specified parts of digestive tract; Z98.51 Tubal ligation status; Z79.4 Long term (current) use of insulin; F17.210 Nicotine dependence, cigarettes, uncomplicated; D63.1 Anemia in chronic kidney disease; E07.81 Sick-euthyroid syndrome; N18.3 Chronic kidney disease, stage 3 (moderate); Z91.14 Patient's other noncompliance with medication regimen; E11.65 Type 2 diabetes mellitus with hyperglycemia; E87.5 Hyperkalemia; Z68.35 Body mass index [BMI] 35.0-35.9, adult
CPT/HCPCS: 36415; 70450; 71010; 76770; 80048; 80053; 80061; 80076; 80307; 81003; 82553; 82570; 82652; 82728; 82947; 83520; 83540; 83550; 83735; 83883; 84100; 84156; 84165; 84166; 84439; 84443; 84481; 84484; 85025; 85027; 85610; 85730; 86021; 86038; 86039; 86160; 86225; 86334; 86335; 86705; 86707; 86803; 87086; 87340; 87350; 93005; 93971; 99284; J0360; J1170; J1815; J1940; J2550; J2916; J2997; J3475